=== PATIENT | female | born 2000 | race Caucasian/White ===

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

== ENCOUNTER → 2021-02-22 17:28 | Outpatient (CLI) | payer BC, SELFPAY ==
[2021-02-22 18:04] LABS: Basophils # 0.1 K/mm3 (0-0.2); Basophils % 0.3 % (0.1-2.0); Eosinophils # 0.1 K/mm3 (0.0-0.4); Eosinophils % 0.4 % (0.1-12.0); Hemoglobin 10.2 g/dL (12.2-16.2); Lymphocytes # 2.6 K/mm3 (0.7-4.5); Mean Corpuscular HGB Conc 32.9 g/dL (31.8-35.4); Mean Corpuscular Hemoglobin 26.5 pg (27.0-31.2); Mean Corpuscular Volume 80.5 fl (81-99); Mean Platelet Volume 7.6 fl (7.4-10.4); Monocytes # 0.5 K/mm3 (0.1-1.0); Monocytes % 3.3 % (1.7-9.3); Neutrophils # 11.9 K/mm3 (1.8-7.8); Neutrophils % 78.9 % (37.0-80.0); Platelet Count 315 K/mm3 (142-424); Red Blood Count 3.85 M/mm3 (4.20-5.40); Red Cell Distribution Width 14.2 % (11.5-17.5); White Blood Count 15.1 K/mm3 (4.5-13.0)
[2021-02-22 18:12] LABS: MANUAL DIFFERENTIAL MANUAL DIFFERENTIAL (MANUAL DIFF)
[2021-02-22 19:01] LABS: Eosinophils % 1 % (0-3); Lymphocytes % 14 % (10-50); Monocytes % 3 % (2-9); Neutrophils % 82 % (42-76); Total Cells Counted 100
[2021-02-22 19:02] LABS: Microcytosis 1+; Platelet Estimate Normal; Spherocytes 1+
[2021-02-24 09:23] LABS: HIV Screen 4th Generation wRfx Non Reactive (Non Reactive)
[2021-02-25 12:49] LABS: Hepatitis B Surface Antigen Negative (Negative); Hepatitis C Antibody <0.1 s/co ratio (0.0-0.9); Rapid Plasma Reagin Ab Titer Non Reactive (NonRea<1:1); Rubella Antibodies, IgG 1.44 index (Immune >0.99)
[2021-02-26 00:50] LABS: Neisseria gonorrhoeae, NAA Negative (Negative)
== END ==
PROVIDERS: Visit Provider Nurse Practitioner Obstetrics & Gynecology
DX: Z34.90 Encounter for supervision of normal pregnancy, unspecified, unspecified trimester (principal)
CPT/HCPCS: 36415; 85007; 85025; 86592; 86695; 86696; 86703; 86762; 86850; 87340; 87380; 87491; 87591; G0432

== ENCOUNTER → 2021-02-24 15:10 | Outpatient (CLI) | payer BC, SELFPAY ==
--- NOTE | 2021-02-24 15:11 | US_ITS ---
PROCEDURE: US OB /MATERNAL DETAIL CLINICAL INDICATION: First NEW OB visit -came in at 20wks Late to care No prior ultrasound Patient does not know LMP and says they area irregular Cephalic Placenta anterior Cervix and amniotic fluid normal Anatomy limited due to gestational age Anatomy seen normal movement seen COMPARISON: No exams were available for comparison FINDINGS: There is a single live fetus present which is in cephalic presentation. The cervix is closed and measures 4 cm in length. The placenta is anterior and grade 1. Complete survey performed and was unremarkable on the submitted images as in PACS. No discrete anomalies identified on survey imaging by technologist. Active fetus. Three-vessel cord with satisfactory umbilical cord insertion. 4- chamber heart noted. Survey of brain & ventricles Unremarkable. Face and neck survey unremarkable. Diaphragm and chest views unremarkable. Abdomen: Both kidneys noted and unremarkable. Stomach noted and satisfactory. Spine: Survey of the spine satisfactory with no anomalies identified nor imaged. Both arms and legs noted. Amniotic Fluid: Adequate. Maternal adnexa: No significant findings. Measurements: Average ultrasound age 25weeks. Gestational Age 25weeks 2days Estimated due date by ultrasound age 0806/09/2021. Estimated weight 767g BPD = 25weeks 2days OFD = 25weeks HC = 24weeks 3days AC = 25weeks 2days FL = 25weeks Growth Percentile= not calculated due to unknown last menstrual Heart Rate = 153bpm Cerebellum = 26weeks 6days Humerus = 25weeks 3days HC/AC is 1.08 CI is 0.78 FL/BPD is 0.73 FL/AC is 0.22 IMPRESSION: Live IUP in cephalic position the at 25 weeks. No obvious anomalies. Please see above for detail Dictated by: Denny Suarez MD 02/25/2021 08:59 Denny Suarez MD in [facility] 02/25/2021 08:59
== END ==
PROVIDERS: PCP Nurse Practitioner Obstetrics & Gynecology; Visit Provider Nurse Practitioner Obstetrics & Gynecology
DX: O26.842 Uterine size-date discrepancy, second trimester (principal); O99.322 Drug use complicating pregnancy, second trimester; Z36.0 Encounter for antenatal screening for chromosomal anomalies; Z3A.20 20 weeks gestation of pregnancy
CPT/HCPCS: 76811

== ENCOUNTER → 2021-05-25 17:40 | Outpatient (CLI) | payer BC, SELFPAY | PROVIDERS: Visit Provider Nurse Practitioner Obstetrics & Gynecology | DX: Z34.90 Encounter for supervision of normal pregnancy, unspecified, unspecified trimester (principal) | CPT/HCPCS: 86403 ==

== ENCOUNTER → 2021-05-28 13:10 | Outpatient (CLI) | payer BC, OTHER, SELFPAY ==
--- NOTE | 2021-05-28 13:11 | US_ITS ---
PROCEDURE: US OB FOLLOW UP CLINICAL INDICATION: sga Small for gestational age FINDINGS: The following parameters are obtained: Average ultrasound age is Average 37weeks 4days Estimated due date by ultrasound is 06/14/2021. Estimated weight is 3,139g. This is 36 percentile BPD: 38weeks 1day OFD: 38 weeks 2 days HC: 37weeks AC: 36weeks 5days FL: 38weeks 1day heart rate: 155bpm bpm. HC/AC: 1 Cephalic index: 0.83 FL/BPD: 0.79 FL/AC: 0.23 Amniotic fluid index: 12.57cm The femur length is 38weeks 1day fetus is in cephalic presentation. placental lakes are noted. There is calcification of the placenta at the uterine wall. Grade 3 anterior/fundal placenta Biophysical profile is 8 of 8. SD ratio is 2.1 with a resistive index of 0.52 within normal limits. IMPRESSION: There is a single live fetus present in cephalic presentation. Average ultrasound age 37 weeks 4 days with an estimated weight 3139 g which is 36 percentile. The femur length is 38 weeks 1 day. MONCHO normal at 13 cm, SD ratio unremarkable at 2.1, biophysical profile 8 of 8 Anterior grade 3 placenta Dictated by: Denny Suarez MD 05/28/2021 14:56 Denny Suarez MD in [facility] 05/28/2021 14:56
== END ==
PROVIDERS: PCP Nurse Practitioner Obstetrics & Gynecology; Visit Provider Nurse Practitioner Obstetrics & Gynecology
DX: O36.5990 Maternal care for other known or suspected poor fetal growth, unspecified trimester, not applicable or unspecified (principal)
CPT/HCPCS: 76816; 76819

== ENCOUNTER → 2021-06-01 13:13 | Outpatient (CLI) | payer BC, OTHER, SELFPAY | PROVIDERS: Visit Provider Nurse Practitioner Obstetrics & Gynecology | DX: Z01.812 Encounter for preprocedural laboratory examination (principal); Z11.52 Encounter for screening for COVID-19; Z34.90 Encounter for supervision of normal pregnancy, unspecified, unspecified trimester | CPT/HCPCS: U0003 ==

== ENCOUNTER 2021-06-02 05:16 | Inpatient (IN) | payer BC, OTHER, SELFPAY ==
[2021-06-02 05:28] VITALS: BMI 24.3
[2021-06-02 05:45] VITALS: BP 132/67; PULSE 85; RESP 18; TEMP 36.8; BMI 24.3
[2021-06-02 06:02] LABS: Basophils # 0.1 K/mm3 (0-0.2); Basophils % 0.5 % (0.1-2.0); Eosinophils # 0.1 K/mm3 (0.0-0.4); Hematocrit 27.1 % (37.0-47.0); Hemoglobin 8.8 g/dL (12.2-16.2); Lymphocytes # 3.3 K/mm3 (0.7-4.5); Lymphocytes % 27.7 % (10-50); Mean Corpuscular HGB Conc 32.4 g/dL (31.8-35.4); Mean Corpuscular Hemoglobin 22.8 pg (27.0-31.2); Mean Corpuscular Volume 70.4 fl (81-99); Mean Platelet Volume 9.9 fl (7.4-10.4); Monocytes # 0.4 K/mm3 (0.1-1.0); Monocytes % 3.3 % (1.7-9.3); Neutrophils % 67.5 % (37.0-80.0); Platelet Count 300 K/mm3 (142-424); Red Blood Count 3.85 M/mm3 (4.20-5.40); Red Cell Distribution Width 14.2 % (11.5-17.5); White Blood Count 11.8 K/mm3 (4.5-13.0)
[2021-06-02 07:23] LABS: Microscopic, Urine URINE MICROSCOPIC (MICROSCOPIC)
[2021-06-02 07:27] LABS: Appearance,Urine CLEAR (Clear); Bilirubin,Urine Negative (Negative); Blood, Urine Negative (Negative); Color,Urine YELLOW (Yellow); Glucose,Urine (UA) Negative (Negative); Ketones,Urine Negative (Negative); Leukocyte Esterase,Urine Negative (Negative); Nitrate,Urine Negative (Negative); Protein,Urine Negative (Negative); Specific Gravity, Urine >= 1.030 (1.005-1.030); Urobilinogen,Urine 0.2 EU/dl (0.2)
[2021-06-02 07:40] LABS: Benzodiazepines Screen,Urine Negative ng/ml (<200)
[2021-06-02 07:41] LABS: Amphetamine/Metha Screen,Urine Negative ng/ml (<1000)
[2021-06-02 07:42] LABS: Barbiturates Screen,Urine Negative ng/ml (<200); Methadone Screen,Urine Negative ng/ml (<300)
[2021-06-02 07:43] LABS: Cannabinoid Screen,Urine Negative ng/ml (<50); Cocaine Screen,Urine Negative ng/ml (<300)
[2021-06-02 07:44] LABS: Opiate Screen,Urine Negative ng/ml (<300)
[2021-06-02 07:45] LABS: Phencyclidine Screen,Urine Negative ng/ml (<25)
--- NOTE | 2021-06-02 09:20 | HMH.PHAINT ---
MEDICATION RECONCILIATION COMPLETE USING ANI REPORT, EXTERNAL PHARMACY FILL HISTORY, AND MD OFFICE VISIT LIST.
--- NOTE | 2021-06-02 10:08 | HMH.OBAPHP ---
OB - H&P: HPI Antepartum - History of Present Illness Chief complaint: Term , previous vaginal delivery, Subutex use in History of present illness: She is a 20-year-old 2 para 1 who is 39 weeks gestational age. She has been followed throughout her . In the early part of her she was using fentanyl tablets. She subsequently has been started on Subutex and has been doing very well with this. She takes 16 mg daily. She is now term and we are going to induce her labor at term. She is 4 cm dilated. [facility] History I have reviewed the patient's past medical history: Yes Medical History: Denies:: Cancer, Diabetes Mellitus Type 1, Diabetes Mellitus Type 2, MRSA *Have you ever received a pneumonia vaccine?: No *Have you received a flu vaccine this season?: No Other Surgeries: Yes: No Previous Surgery. No: Amputation: No Fractures: No - *Social History Smoking Status: Never smoker Alcohol Intake: never Substance Use Type: heroin, methamphetamine, prescription drug, amphetamines, opiates *Occupational Status:: unemployed *Travel in the last 8 weeks: None Family Hx:: No significant family history Para: 1 Review of Systems - Review of Systems Review of systems:: pertinent systems reviewed and negative unless documented below Meds Home Medications Medication Instructions Recorded Confirmed Type buprenorphine HCl 8 mg sublingual 2 tab SUBLINGUAL DAILY 03/24/21 06/02/21 History tablet Allergies Allergy/AdvReac Type Severity Reaction Status Date / Time No Known Allergies Allergy Verified 06/01/21 14:12 OB - H&P: Exam - Physical Exam Vital signs: Temp Pulse Resp BP 98.3 F 85 18 132/67 06/02/21 05:45 06/02/21 05:45 06/02/21 05:45 06/02/21 05:45 - Constitutional no acute distress - Routine HEENT Exam Head: Present: normocephalic Eye: Present: EOMI, PERRL ENT: Present: mucous membranes moist - Routine Neck Exam Present: supple, full ROM - Routine Respiratory Exam Absent: accessory muscle use (good air entry bilaterally), respiratory distress, wheezes, crackles - Routine Cardiovascular Exam Present: RRR. Absent: murmur - Routine Abdominal Exam Present: soft, normoactive bowel sounds. Absent: tenderness, distended, guarding - Routine Rectal Exam Patient deferred: visual exam, digital exam - Routine Exam Patient deferred: external exam, groin exam, perineal exam - Routine Extremities Exam Present: full ROM. Absent: cyanosis, edema - Routine Skin Exam Present: intact. Absent: cyanosis - Routine Neurological Exam Present: alert, oriented X3 - Routine Psychiatric Exam Present: normal affect OB - Results - Labs Labs: Short CBC 06/02/21 Range/Units 05:45 WBC 11.8 (4.5-13.0) K/mm3 Hgb 8.8 L (12.2-16.2) g/dL Hct 27.1 L (37.0-47.0) % Plt Count 300 (142-424) K/mm3 Urine 06/02/21 Range/Units 07:00 Urine Color Yellow (Yellow) Urine Appearance Clear (Clear) Urine pH 6.0 (5.0-8.5) Ur Specific [place] >= 1.030 (1.005-1.030) Urine Protein Negative (Negative) Urine Glucose (UA) Negative (Negative) OB - A/P Antepartum (1) Normal delivery at term Status: Acute (2) complicated by subutex maintenance, antepartum Status: Acute (3) First in adolescent 16 years of age or older Status: Acute - Additional Plan Planning to breastfeed?: No Plan: induction Additional Information:: She is 39 weeks gestational age and we have elected to induce her labor. We ruptured her membranes and inserted an IUPC. There was clear fluid. She is 4 cm 75% and station -1. She has an epidural.
--- NOTE | 2021-06-02 10:11 | HMH.LABNOT ---
Labor Note - Subjective: Date: 06/02/21 Time: 10:11 regular contraction - Objective: NST:: Reactive Contractions:: every 2-3 minutes Cervical Dilation:: 4 Effacement:: 75% Station: -1 Membranes: artificially ruptured - Fetus: Monitoring?: Yes monitoring type:: Internal and External Comment:: I inserted an I UPC - Assessment: Labor progressing?: Yes Cephalopelvic disproportion?: No Patient Problems: All Active Problems Normal delivery at term (Acute) complicated by subutex maintenance, antepartum (Acute) First in adolescent 16 years of age or older (Acute) (Acute) - Plan: Anesthesia for epidural?: Yes Continue to labor down?: Yes Plan for ?: No Continue to monitor?: Yes Start pushing?: No
--- NOTE | 2021-06-02 11:03 | P.PN_ITS ---
[facility] Anesthesia Checklist - Patient Identification Patient Identification: Arm Band - Structural Data Admitted From: Inpatient Planned Operative Procedure/s: labor epidural Consent for Planned Operative Procedure(s) Verified: Yes Verified Documents: Surgical Consent, History and Physical - NPO Status Verified Time NPO: 00:00 - Additional verifications Anesthesia Reactions: No - Airway Assessment C-Spine Mobility Assessed: Yes TMJ Mobility Assessed: Yes Dentition: Good Dentition - Neurological Assessment Level of Consciousness: Awake, Alert - Anesthesia Plan Anesthesia Risk discussed: Yes Anesthesia Plan: Verified ASA Class: II Anesthesia Type: Epidural [facility] History I have reviewed the patient's past medical history: Yes Medical History: Denies:: Cancer, Diabetes Mellitus Type 1, Diabetes Mellitus Type 2, MRSA *Have you ever received a pneumonia vaccine?: No *Have you received a flu vaccine this season?: No Anesthesia experience/problems:: nac Other Surgeries: Yes: No Previous Surgery. No: Amputation: No Fractures: No - *Social History Smoking Status: Never smoker Alcohol Intake: never Substance Use Type: heroin, methamphetamine, prescription drug, amphetamines, opiates *Occupational Status:: unemployed *Travel in the last 8 weeks: None Family Hx:: No significant family history Para: 1
--- NOTE | 2021-06-02 13:47 | HMH.LABNOT ---
Labor Note - Subjective: Date: 06/02/21 Time: 11:59 regular contraction - Objective: NST:: Reactive Contractions:: every 2-3 minutes Cervical Dilation:: 4 Effacement:: 90% Station: -1 Membranes: artificially ruptured - Fetus: monitoring type:: Internal and External - Assessment: Labor progressing?: No Cephalopelvic disproportion?: No Patient Problems: All Active Problems Normal delivery at term (Acute) complicated by subutex maintenance, antepartum (Acute) First in adolescent 16 years of age or older (Acute) (Acute) - Plan: Anesthesia for epidural?: Yes Continue to labor down?: Yes Plan for ?: No Continue to monitor?: Yes Start pushing?: No
--- NOTE | 2021-06-02 13:48 | HMH.LABNOT ---
Labor Note - Subjective: Date: 06/02/21 Time: 13:48 regular contraction - Objective: NST:: Reactive Contractions:: every 2-3 minutes Cervical Dilation:: 5 Effacement:: 90% Station: -1 Membranes: artificially ruptured - Fetus: Monitoring?: Yes monitoring type:: Internal and External - Assessment: Labor progressing?: Yes Cephalopelvic disproportion?: No Patient Problems: All Active Problems Normal delivery at term (Acute) complicated by subutex maintenance, antepartum (Acute) First in adolescent 16 years of age or older (Acute) (Acute) - Plan: Anesthesia for epidural?: Yes Continue to labor down?: Yes Plan for ?: No Continue to monitor?: Yes Start pushing?: No
--- NOTE | 2021-06-02 16:10 | HMH.LABNOT ---
Labor Note - Subjective: Date: 06/02/21 Time: 15:25 regular contraction - Objective: NST:: Reactive Contractions:: every 2-3 minutes Cervical Dilation:: 6-7 Effacement:: 100% Station: 0 Membranes: artificially ruptured - Fetus: Monitoring?: Yes monitoring type:: Internal and External - Assessment: Labor progressing?: Yes Cephalopelvic disproportion?: No Patient Problems: All Active Problems Normal delivery at term (Acute) complicated by subutex maintenance, antepartum (Acute) First in adolescent 16 years of age or older (Acute) (Acute) - Plan: Anesthesia for epidural?: Yes Continue to labor down?: Yes Plan for ?: No Continue to monitor?: Yes Start pushing?: No
[2021-06-02 16:44] LABS: Cord Blood PH 7.35 (7.35-7.45)
--- NOTE | 2021-06-02 17:24 | HMH.DN ---
- Delivery Note Delivery Date:: 06/02/21 Delivery Time:: 16:20 Anesthesia Type: Epidural Was labor medically induced?: Yes Induction method: per misoprostol protocol Gestational age (weeks): 39 delivered prior to 39 weeks?: No Infant Gender: Female at 1 minute: 8 at 5 minutes: 9 LAC or MLE?: LAC Delivery Procedure:: She is a 20-year-old 2 para 1 at 39 weeks gestational age. We brought her in for induction of labor at term. She was started on IV oxytocin and had her membranes ruptured. Under labor epidural she progressed to full dilation and delivered spontaneously a liveborn female child at 4:20 PM in the afternoon of the June 02, 2021. On deliver the head the anterior shoulder then easily delivered followed by the rest the infant's body atraumatically. The baby was vigorous and the oropharynx and nasopharynx were bulb suctioned. We allowed the cord to continue to pulsate for approximately 1 minute. The cord was then doubly clamped and cut and the was handed to Dr. Strickland who assigned Apgars of 8 at 1 minute and 9 at 5 minutes. We then obtained cord blood as well as cord pH. She received IV oxytocin and using gentle traction on the cord and countertraction on the fundus I was able to easily deliver the placenta intact. It had a normal three-vessel cord. She had bilateral labial lacerations that were repaired with interrupted 3-0 Vicryl Rapide suture. She has O Rh+ blood, she is rubella immune and was group B streptococcus negative. She plans to bottlefeed. Her mandolin repairer is Dr. Strickland. Estimated blood loss was approximately 200 cc. Laceration:: labial Placental Delivery Description: Spontaneous
--- NOTE | 2021-06-03 07:16 | PC.NURSE ---
Report given to Roxi CONTRERAS
--- NOTE | 2021-06-03 08:29 | HMH.ACPN2 ---
Internal Medicine - PN: Subj *Date: 06/03/21 *Time: 08:29 Interval history: She is doing well. She declined her H&H this morning. I have encouraged her to go ahead and get this since she was anemic yesterday. She is bottlefeeding. Her lochia is normal. She feels otherwise well. Exam Vital signs and Labs for Last 24 Hours: Temp Pulse Resp BP 98.3 F 85 18 132/67 06/02/21 05:45 06/02/21 05:45 06/02/21 05:45 06/02/21 05:45 Laboratory Results - last 24 hr 06/02/21 05:45: Blood Type O Positive, Antibody Screen Negative, Crossmatch (AHG) See Detail 06/02/21 16:20: Cord ABG pH 7.35 I & O for Last 24 hours: Intake & Output 05/31/21 06/01/21 06/02/21 06/03/21 11:59 11:59 11:59 11:59 Weight 145 lb 15.983 oz - Constitutional no acute distress - *Routine HEENT Exam Head: Present: normocephalic Eye: Present: EOMI, PERRL ENT: Present: mucous membranes moist Assessment and Plan (1) Normal delivery at term Status: Acute Category: Medical Code(s): O80 - Encounter for full-term uncomplicated delivery (2) complicated by subutex maintenance, antepartum Status: Acute Category: Medical Code(s): O99.320 - Drug use complicating , unspecified trimester; F11.20 - Opioid dependence, uncomplicated (3) First in adolescent 16 years of age or older Status: Acute Category: Medical Code(s): Z34.00 - Encounter for supervision of normal first , unspecified trimester - Assessment and plan all Dx Assessment and Plan for all problems:: She is doing well this morning. We will plan to send her home tomorrow.
[2021-06-03 09:13] LABS: Hematocrit 23.5 % (37.0-47.0); Hemoglobin 7.8 g/dL (12.2-16.2)
--- NOTE | 2021-06-03 12:55 | SW/DCPLANNER ---
Addendum entered by Irina Morley 06/04/21 10:00: AFTER A COUPLE OF CALLS TO [facility], THE CASE ON THIS PATIENT IS STILL PENDING... WILL FOLLOWUP AGAIN LATER IN THE MORNING TO SEE IF THEY HAVE MADE A DECISION... Original Note: RECEIVED REFERRAL FOR THIS PATIENT THAT ADMITTED TO [facility] [address]. PATIENT ALSO TESTED POSITIVE FOR MORPHINE THIS .. PATIENT PRESENTED INTO THE HOSPITAL 39 WEEKS IUP AND DELIVERED A LIVE BORN FEMALE BOTH INFANT AND PATIENTS UDS WAS NEGATIVE.. IS SCORING WITHDRAW DISTURBED TREMORS, EXCESSIVE SNEEZING, SUCKING, CRYING... PATIENT HAS ANOTHER CHILD THAT SHE DOES NOT HAVE IN HER CUSTODY, PATIENTS MOTHER IS AT BEDSIDE AND HAS HER OTHER CHILD.. SHE IS IN A [facility] CLINIC.. SHE STATES SHE TAKES 2 PILLS EACH DAY.. I MADE A REPORT TO [facility] AN ID# [id number] PATIENT STATED SHE DOES NOT HAVE WIC OR FOODSTAMPS BUT IS GOING TO APPLY.. SHE DID SAY SHE HAD EVERYTHING SHE NEEDS TO TAKE THE INFANT HOME, HER MOTHER HAS CONCERNS OF HER TAKING THE BABY HOME BECAUSE WHERE SHE LIVES.. IT WAS REPORTED AND I WILL FOLLOWUP WITH [facility] TO SEE IF THEY ACCEPTED THE CASE FOR INVESTIGATION.. CORD SCREEN WAS COLLECTED AND SENT OFF, IT WILL BE REPORTED.. THE PLAN IS FOR PATIENT TO DISCHARGE IN THE AM AND PENDING HOW DOES IS WHETHER IT WILL BE READY OR NOT..
[2021-06-03 20:02] VITALS: BP 128/70; PULSE 65; RESP 16; TEMP 36.8; O2SAT 100
[2021-06-04 04:08] VITALS: BP 131/78; PULSE 68; RESP 16; TEMP 37.1; O2SAT 97
[2021-06-04 07:15] VITALS: BP 115/61; PULSE 78; RESP 18; TEMP 37.2; O2SAT 98
--- NOTE | 2021-06-04 11:51 | P.DS_ITS ---
General - General Admission date:: 06/02/21 Discharge date: 06/04/21 HPI - History of Present Illness History of present illness: She is a 20-year-old 2 para 1 at 39 weeks gestational age. She is using Subutex for drug abuse. She was brought in for induction of labor at term. Hospital Course Hospital Course: She was started on IV oxytocin and had her membranes ruptured. She progressed to full dilation under labor epidural and delivered spontaneously a liveborn female child in the afternoon of June 02, 2021. Baby weighed 7 pounds 14 ounces and was 19 inches long. She had Apgars of 8 at 1 minute and 9 at 5 minutes. She has done well and has remained afebrile throughout her hospitalization. She is eating and drinking and ambulating. She is bottlefe eding. Her lochia is normal. She has O+ blood, she is rubella immune and was group B streptococcus negative. Her personnel clerk Dr. Strickland. She was noted to have predelivery anemia and post delivery her hemoglobin is 7.8. She is asymptomatic with respect to this. She is discharged home to follow-up with me in approximate 2 weeks time. She will continue with her vitamins. She was given a prescription for iron tablets to take twice daily. She will continue with her Subutex. She was given the usual instructions with respect to limiting her activity, driving and sexual activity. She would like to have Depo-Provera for control and will give this to her before she leaves. Her condition on discharge is stable and improved. Rhogam Administration: Not Indicated Objective Vital signs: Temp Pulse Resp BP Pulse Ox 98.9 F 78 18 115/61 98 06/04/21 07:15 06/04/21 07:15 06/04/21 07:15 06/04/21 07:15 06/04/21 07:15 no acute distress - *Routine Neck Exam Present: supple DS: Diagnosis - Discharge Diagnosis (1) Normal delivery at term Status: Acute (2) complicated by subutex maintenance, antepartum Status: Acute (3) First in adolescent 16 years of age or older Status: Acute (4) Anemia, Status: Acute Discharge Plan - Patient Discharge Instructions ACTIVITY: No heavy lifting DIET: continue same diet - Follow up Plan Condition at discharge:: Stable Home Medications: Home Medications Medication Instructions Recorded Confirmed Type buprenorphine HCl 8 mg sublingual 2 tab SUBLINGUAL DAILY 03/24/21 06/02/21 History tablet Ferrous Sulfate [Ferrous Sulfate 325 mg PO DAILY #30 tab 06/04/21 Rx 325mg Tablet] Prescriptions/Medication Reconciliation: New Ferrous Sulfate [Ferrous Sulfate 325mg Tablet] 325 mg PO DAILY #30 tab Continued buprenorphine HCl 8 mg sublingual tablet 2 tab SUBLINGUAL DAILY - Problem Reconciliation Problems Reviewed?: Yes
[2021-06-04 12:04] VITALS: BP 106/64; PULSE 62; RESP 16; TEMP 36.9; O2SAT 97
[2021-06-08 10:25] LABS: Buprenorphine Positive (.)
== END 2021-06-04 14:45 | disposition home or self-care (01) | DRG 807 ==
PROVIDERS: Obstetrics & Gynecology; Admitting Provider Nurse Practitioner Obstetrics & Gynecology; PCP Nurse Practitioner Obstetrics & Gynecology; Visit Provider Nurse Practitioner Obstetrics & Gynecology
DX: O70.0 First degree perineal laceration during delivery (principal); Z37.0 Single live birth; Z3A.39 39 weeks gestation of pregnancy; O99.320 Drug use complicating pregnancy, unspecified trimester; F11.11 Opioid abuse, in remission; O90.81 Anemia of the puerperium
CPT/HCPCS: 59409; 36415; 59025; 80305; 80348; 81001; 82800; 85014; 85018; 85025; 86850; 94761; C1758; G0283; J0571

== ENCOUNTER → 2021-12-30 09:04 | Outpatient (CLI) | payer BC, OTHER, SELFPAY ==
[2021-12-30 10:09] LABS: Basophils # 0.2 K/mm3 (0-0.2); Basophils % 2.7 % (0.1-2.0); Eosinophils # 0.3 K/mm3 (0.0-0.4); Eosinophils % 5.5 % (0.1-12.0); Hematocrit 38.3 % (37.0-47.0); Hemoglobin 12.1 g/dL (12.2-16.2); Lymphocytes % 53.3 % (10-50); Mean Corpuscular HGB Conc 31.5 g/dL (31.8-35.4); Mean Corpuscular Hemoglobin 24.8 pg (27.0-31.2); Mean Corpuscular Volume 78.8 fl (81-99); Mean Platelet Volume 7.6 fl (7.4-10.4); Monocytes # 0.2 K/mm3 (0.1-1.0); Monocytes % 3.6 % (1.7-9.3); Neutrophils % 34.9 % (37.0-80.0); Platelet Count 337 K/mm3 (142-424); Red Blood Count 4.86 M/mm3 (4.20-5.40); Red Cell Distribution Width 15.4 % (11.5-17.5); White Blood Count 5.6 K/mm3 (4.5-13.0)
[2021-12-30 10:18] LABS: MANUAL DIFFERENTIAL MANUAL DIFFERENTIAL (MANUAL DIFF)
[2021-12-30 10:37] LABS: Alanine Aminotransferase 23 U/L (12-78); Albumin Level 4.5 g/dl (3.5-5.0); Alkaline Phosphatase 89 U/L (38-126); Aspartate Amino Transferase 35 U/L (14-36); Bilirubin,Direct 0.1 mg/dl (0.0-0.4); Bilirubin,Indirect 0.3 mg/dL (0.0-0.9); Bilirubin,Total 0.4 mg/dl (0.2-1.3); Bilirubin,Unconjugated 0.2 mg/dL (0.0-1.1); Blood Urea Nitrogen 12 mg/dl (7-17); Calcium 9.3 mg/dl (8.4-10.2); Carbon Dioxide 25 mmol/L (22.0-30.0); Chloride 104 mmol/L (98-107); Estimated Glomerular Filt Rate 127 ml/min (>60); GFR (African American) 154 ML/MIN (>60); Glucose 96 mg/dl (74-100); Sodium 138 mmol/L (136-145); Total Protein,Serum 6.7 g/dl (6.3-8.2)
[2021-12-30 12:29] LABS: Eosinophils % 6 % (0-3); Lymphocytes % 51 % (10-50); Monocytes % 5 % (2-9); Neutrophils % 36 % (42-76); Total Cells Counted 100
[2021-12-30 12:32] LABS: Platelet Estimate Normal; RBC Morphology Normal
[2021-12-31 09:23] LABS: HIV Screen 4th Generation wRfx Non Reactive (Non Reactive)
[2021-12-31 10:13] LABS: Hep A Ab, Total Positive (Negative); Hep B Core Ab, Total Negative (Negative); Hepatitis B Surf Ab Quant <3.1 mIU/mL (Immunity>9.9); Hepatitis B Surface Antigen Negative (Negative); Rapid Plasma Reagin Ab Titer Non Reactive (NonRea<1:1)
[2022-01-02 20:13] LABS: QuantiFERON-TB Gold Plus Negative (Negative)
== END ==
PROVIDERS: Visit Provider Nurse Practitioner Family
DX: F11.21 Opioid dependence, in remission (principal)
CPT/HCPCS: 36415; 80048; 80076; 85007; 85025; 86480; 86592; 86703; 86704; 86706; 86708; 87340; G0432

== ENCOUNTER 2022-01-05 00:52 | Emergency (ER) | payer BC, OTHER, SELFPAY ==
[2022-01-05 01:03] VITALS: BP 0/0; PULSE 0; RESP 0; TEMP -17.7; TEMP 0; O2SAT 0
[2022-01-05 01:03] LABS: Microscopic, Urine URINE MICROSCOPIC (MICROSCOPIC)
[2022-01-05 01:05] LABS: Appearance,Urine CLEAR (Clear); Bilirubin,Urine Negative (Negative); Blood, Urine Negative (Negative); Color,Urine YELLOW (Yellow); Glucose,Urine (UA) Negative (Negative); Ketones,Urine Negative (Negative); Leukocyte Esterase,Urine 1+ (Negative); Nitrate,Urine Negative (Negative); Protein,Urine Negative (Negative); Specific Gravity, Urine >= 1.030 (1.005-1.030); Urobilinogen,Urine 0.2 EU/dl (0.2)
[2022-01-05 01:06] LABS: Urine Pregnancy, HCG Qual. Negative (Negative)
[2022-01-05 01:24] LABS: Bacteria,Urine 1+ /lpf; Mucus,Urine 1+ /lpf
--- NOTE | 2022-01-05 01:36 | HMH.ITSTN ---
pt left ER prior to attempting ct scan
== END 2022-01-05 01:08 | disposition left against medical advice (07) ==
PROVIDERS: Emergency Provider Emergency Medicine
DX: Z53.21 Procedure and treatment not carried out due to patient leaving prior to being seen by health care provider (principal); R10.10 Upper abdominal pain, unspecified
CPT/HCPCS: 81001; 81025; 87086; 99211

== ENCOUNTER 2022-11-22 18:27 | Day surgery (SDC) | payer BC, OTHER, SELFPAY ==
[2022-11-22] VITALS (13 sets, daily range): BP systolic 99–137; BP diastolic 53–83; PULSE 89–130; RESP 16–22; TEMP 36.9–37.2; O2SAT 96–100; BMI 21.6
--- NOTE | 2022-11-22 18:50 | PC.NURSE ---
fetus brought to ED wrapping in paper towels and placed in a bag (there were in a store when pt passed fetus). Fetus carefully removed from bag used saline to remove paper towels that were wrapped around fetus. ER MD present, he measured crown to rump length- approx 70 cm saline placed on fetus to keep moist, fetus placed in container with a lid until we can speak with OB it architecture consultant or lab if needed per the direction of ER . container wrapped in baby blanket and placed in a bath basin. [place] in room with pt, explained to pt we had moistened fetus with saline and have placed it in a container until ER has spoken with OB it architecture consultant. Asked pt is she would like to have fetus in the bed with her, pt declined. Pt mother at BS. will continue to monitor.
--- NOTE | 2022-11-22 19:03 | PC.NURSE ---
ob nursing staff at BS
--- NOTE | 2022-11-22 19:19 | PC.NURSE ---
on phone with dr ashley
--- NOTE | 2022-11-22 19:22 | US_ITS ---
PROCEDURE INFORMATION: Exam: US Pelvis Complete, Transabdominal and US Duplex Artery and Vein, Ovaries, Complete Exam date and time: 11/22/2022 7:52 PM Age: 22 years old Clinical indication: Pelvic pain: [place] post miscarriage spont; Pelvic pain; Patient HX: PT unaware of -- has been bleeding passing clots-- PT had sponataeous ab of formed fetus approx 12 wks? ? Tonight-- eval for retained products TECHNIQUE: Imaging protocol: Real-time transabdominal pelvic ultrasound with image documentation. Real-time duplex ultrasound scan of the arterial and venous flow of the ovaries with B-mode, color Doppler flow and spectral waveform analysis. Complete Pelvis, Complete Duplex. Duplex exam was performed to evaluate for torsion and other vascular conditions. COMPARISON: No relevant prior studies available. FINDINGS: Uterus: Enlarged uterus measures approximately 11.8 x 12.5 x 8.5 cm. Endometrial stripe thickness: Poorly delineated heterogeneously thickened peripherally hyperemic endometrium measuring approximately 8.2 x 7.9 x 5.8 cm containing debris, blood/fluid extending into the endocervical canal. Right ovary/adnexa: Measures approximately 8.3 mL. Left ovary/adnexa: Measures approximately 3.4 mL. Intraperitoneal space: No discernible adnexal mass or abnormality. No free fluid within the pelvis. Urinary bladder: Partially distended urinary bladder. Other findings: Doppler examination of the ovaries with pulsed wave and color images was performed which demonstrate arterial/venous waveforms within normal limits. IMPRESSION: 1. Findings consistent with retained products of conception. 2. Normal ovaries demonstrating blood flow on Doppler.
--- NOTE | 2022-11-22 19:22 | PC.NURSE ---
assisted ER MD with pelvic exam at this time.
--- NOTE | 2022-11-22 19:23 | PC.NURSE ---
rad staff notified of transvaginal ultrasound order
[2022-11-22 19:29] LABS: Basophils % 0.2 % (0.1-2.0); Eosinophils # 0.1 K/mm3 (0.0-0.4); Eosinophils % 0.3 % (0.1-12.0); Hematocrit 33.9 % (37.0-47.0); Hemoglobin 11.1 g/dL (12.2-16.2); Lymphocytes # 1.9 K/mm3 (0.7-4.5); Lymphocytes % 9.8 % (10-50); Mean Corpuscular HGB Conc 32.6 g/dL (31.8-35.4); Mean Corpuscular Hemoglobin 22.7 pg (27.0-31.2); Mean Corpuscular Volume 69.4 fl (81-99); Mean Platelet Volume 7.3 fl (7.4-10.4); Monocytes # 0.6 K/mm3 (0.1-1.0); Monocytes % 3.2 % (1.7-9.3); Neutrophils # 16.4 K/mm3 (1.8-7.8); Neutrophils % 86.4 % (37.0-80.0); Platelet Count 503 K/mm3 (142-424); Red Blood Count 4.88 M/mm3 (4.20-5.40); Red Cell Distribution Width 15.8 % (11.5-17.5)
[2022-11-22 19:30] LABS: Chloride 103 mmol/L (98-107); Potassium 3.6 mmoL/L (3.5-5.1); Sodium 138 mmol/L (136-145)
[2022-11-22 19:31] LABS: MANUAL DIFFERENTIAL MANUAL DIFFERENTIAL (MANUAL DIFF)
[2022-11-22 19:33] LABS: Anion Gap 13.6 mEq/L (5-15); Blood Urea Nitrogen 6 mg/dl (7-17); Calcium 9.3 mg/dl (8.4-10.2); Carbon Dioxide 25 mmol/L (22.0-30.0); Estimated Glomerular Filt Rate 201 ml/min (>60); GFR (African American) 244 ML/MIN (>60); Glucose 97 mg/dl (74-100)
--- NOTE | 2022-11-22 19:33 | PC.NURSE ---
Dr. Saavedra paged again
--- NOTE | 2022-11-22 19:33 | PC.NURSE ---
Dr. Garcia speaking with Dr. Saavedra
[2022-11-22 19:34] LABS: Creatinine Clearance Estimated 207 mL/min (50-200)
--- NOTE | 2022-11-22 19:34 | PC.NURSE ---
BUSTER VANESSA speaking with dr. ashley again r/t on what procedure is for fetus as far as does any testing need to be done.
--- NOTE | 2022-11-22 19:39 | HMH.EDGENADL ---
Discharge Plan Disposition Patient Disposition: Admitted As Inpatient Condition: Fair Prescriptions Prescriptions: No Action buprenorphine HCl 8 mg tablet, sublingual 2 tab SUBLINGUAL DAILY Narcan 4 mg/actuation spray,non-aerosol INTRANASAL Label Comments: INHALE 1 SPRAY IN THE NOSE NEEDED MAY REPEAT EVERY 2 3 MINUTES ALTERNATING NOSTRILS UNTIL EMS ARRIVES metoclopramide HCl [Reglan] 5 mg tablet 5 mg PO QID 10 Days Qty: 40 0RF Rx Instructions: administer 30 minutes before meals medroxyprogesterone [Depo-Provera] 150 mg/mL suspension 150 mg IM [id number] Qty: 1 3RF ferrous sulfate 325 MG tablet 325 mg PO DAILY Qty: 30 1RF Referrals Follow up/Referrals: Provider,Referral, [Primary Care Provider] - See instructions Clinical Impressions Clinical Impression: Miscarriage Instructions Patient Instructions: DI for Miscarriage Discharge ED Provider: Temo Garcia General Adult HPI <Temo Garcia MD - Last Filed: 11/22/22 20:01> General Chief complaint: Vaginal Bleeding Stated complaint: poss miscarriage Time Seen by Provider: 11/22/22 18:40 Mode of Arrival: Wheelchair Source of Information: Patient Limitations: No Limitations Description of Symptoms (Recalled from ER Triage Doc. 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 Pt reports has been having vaginal bleeding x3 months, reports irregular LMP since previous that was 16 months ago. Pt reports has been cramping intermittently with vaginal bleeding x3 months. Pt reports has been passing blood clots x2 days. Reports felt like she had to go to the restroom while in a store. Mother was with pt, pt passed a fetus from vaginal while in the bathroom in the store, passed some clots with the fetus. Fetus brought to ER with pt. Pt have slight vaginal bleeding upon arrival to ED, states only has pain when standing up straight. History of Present Illness HPI narrative: Patient presents complaining of a miscarriage. She did not realize she was , but passed a fetus today. She reports that she has been having irregular bleeding since delivery of her child 16 months ago and therefore did not have any identifiable missed menses. She has been having some intermittent vaginal bleeding and cramping for 3 months, passing clots for the past couple of days, and then today had an episode of severe cramping and passed a small fetus which was brought to the emergency department wrapped in paper towels and a plastic bag. She has some persistent bleeding. Currently denies any pain. She is now 3, para 2, AB 1. Dr. Saavedra delivered one of her previous children, and the other was delivered by an mechanical inspector in [place]. She states that she is Rh+. Related Data Home Medications Medication Instructions Recorded Confirmed buprenorphine HCl 8 mg sublingual 2 tab sublingual DAILY hx of drug 03/24/21 06/16/21 tablet use naloxone 4 mg/actuation nasal ea intranasal 06/16/21 06/16/21 spray (Narcan) Previous Rx's Medication Instructions Recorded ferrous sulfate 325 mg (65 mg 325 mg PO DAILY #30 tabs 06/04/21 iron) tablet medroxyprogesterone 150 mg/mL 150 mg IM [id number] #1 mL 06/16/21 intramuscular suspension (Depo-Provera) metoclopramide HCl 5 mg tablet 5 mg PO QID 10 days #40 tabs 06/16/21 (Reglan) Allergies Allergy/AdvReac Type Severity Reaction Status Date / Time No Known Allergies Allergy Verified 06/16/21 15:01 [facility] <Temo Garcia MD - Last Filed: 11/22/22 20:01> [facility] Disclaimer: The information contained in this section may have been updated after the patient was seen, as this information can be updated by other users. Social History Smoking Status: Unknown if ever smoked alcohol intake: never substance use type: heroin, amphetamines, opiates, methamphetamine and prescription drug current occupational status: unemployed Travel in the
--- NOTE | 2022-11-22 19:42 | PC.NURSE ---
shift change report given to rickey meyer and maria teresarn
--- NOTE | 2022-11-22 19:45 | PC.NURSE ---
Pt gone for transvaginal U/S
--- NOTE | 2022-11-22 20:25 | PC.NURSE ---
Spoke with Dr. Suggs, requested surgery team, for D & C.
--- NOTE | 2022-11-22 20:27 | PC.NURSE ---
Spoke with surgery team.
[2022-11-22 20:36] LABS: Coronavirus 19, PCR Not Detected (NotDetected); Influenza A, PCR Not Detected (NotDetected); Influenza B, PCR Not Detected (NotDetected)
--- NOTE | 2022-11-22 20:50 | PC.NURSE ---
dr ashley @ bedside
--- NOTE | 2022-11-22 20:52 | PC.NURSE ---
Dr. Saavedra at BS
--- NOTE | 2022-11-22 20:56 | EXP.HP ---
History of Present Illness *Admission Date: 11/22/22 *Reason for visit:: Incomplete *History of present illness: She is a 22-year-old 3 para 2 who was about 12 weeks gestational age. She did not know she was . She passed a fetus while at [facility]. She had been having bleeding for the last few weeks. Ultrasound shows that she still has some retained products of conception. Possibly placental tissue. [facility] Disclaimer: The information contained in this section may have been updated after the patient was seen, as this information can be updated by other users. Social History Smoking Status: Unknown if ever smoked alcohol intake: never substance use type: heroin, amphetamines, opiates, methamphetamine and prescription drug current occupational status: unemployed Travel in the last 8 weeks: None Review of Systems Review of Systems Review of systems:: pertinent systems reviewed and negative unless documented below Meds Home Medications and Allergies Home Medications Medication Instructions Recorded Confirmed Type buprenorphine HCl 8 mg sublingual 2 tab sublingual DAILY hx of drug 03/24/21 06/16/21 History tablet use ferrous sulfate 325 mg (65 mg 325 mg PO DAILY #30 tabs 06/04/21 06/16/21 Rx iron) tablet medroxyprogesterone 150 mg/mL 150 mg IM [id number] #1 mL 06/16/21 06/16/21 Rx intramuscular suspension (Depo-Provera) metoclopramide HCl 5 mg tablet 5 mg PO QID 10 days #40 tabs 06/16/21 06/16/21 Rx (Reglan) naloxone 4 mg/actuation nasal ea intranasal 06/16/21 06/16/21 History spray (Narcan) New Prescriptions to Start Prescriptions: Allergies Allergy/AdvReac Type Severity Reaction Status Date / Time No Known Allergies Allergy Verified 06/16/21 15:01 Exam Data for Last 24 hours Vital signs and Labs for Last 24 Hours: Temp Pulse Resp BP Pulse Ox 98.4 F 114 H 18 114/63 99 11/22/22 18:28 11/22/22 19:30 11/22/22 19:30 11/22/22 19:30 11/22/22 19:30 Laboratory Results - last 24 hr 11/22/22 18:41: WBC 19.0 H, RBC 4.88, Hgb 11.1 L, Hct 33.9 L, MCV 69.4 L, MCH 22.7 L, MCHC 32.6, RDW 15.8, Plt Count 503 H, MPV 7.3 L, Neut % (Auto) 86.4 H, Lymph % (Auto) 9.8 L, [place] % (Auto) 3.2, Eos % (Auto) 0.3, Baso % (Auto) 0.2, Neut # (Auto) 16.4 H, Lymph # (Auto) 1.9, [place] # (Auto) 0.6, Eos # (Auto) 0.1, Baso # (Auto) 0.0 11/22/22 18:41: Sodium 138, Potassium 3.6, Chloride 103, Carbon Dioxide 25, Anion Gap 13.6, BUN 6 L, Creatinine 0.40 L, Estimated Creat Clear 207, Estimated GFR 201, Est GFR ( Amer) 244, Glucose 97, Calcium 9.3 I & O for Last 24 hours: Intake & Output 11/20/22 11/21/22 11/22/22 11/23/22 11:59 11:59 11:59 11:59 Weight 130 lb Constitutional Constitutional: no acute distress *Routine HEENT Exam Head: Present normocephalic Eye: Present EOMI and PERRL ENT: Present mucous membranes moist *Routine Neck Exam Neck: Present supple; Absent lymphadenopathy *Routine Respiratory Exam Respiratory: Present CTA bilaterally *Routine Cardiovascular Exam Cardiovascular: Present RRR *Routine Abdominal Exam Abdominal: Present soft and normoactive bowel sounds; Absent tenderness *Routine Rectal Exam Rectal:: deferred *Routine Genitalia Exam Genitalia:: deferred *Routine Extremities Exam Extremities: Absent cyanosis, clubbing or edema *Routine Skin Exam Skin: Present warm; Absent rash *Routine Neurological Exam Neurological: Present alert and oriented X3 Assessment and Plan *Assessment and plan (1) Miscarriage: Status: Acute Category: Medical Code(s): O03.9 - Complete or unspecified spontaneous without complication (2) Incomplete : Status: Acute Category: Medical Code(s): O03.4 - Incomplete spontaneous without complication Plan We will go ahead with a dilation and curettage with Rambo suction. Ultrasound
--- NOTE | 2022-11-22 21:43 | P.OP_ITS ---
Date of procedure: 11/22/22 Pre-op Diagnosis:: Miscarriage with retained products Post-op Diagnosis:: Miscarriage with retained placenta Procedure performed:: Dilation and curettage with Rambo suction Surgeon:: Kristian Saavedra MD SALES ASSISTANT [employer]:: Bassam Kan Anesthesia: LMA Estimated blood loss (mL): 350 Clinical Note:: She is a 22-year-old 3 para 2 who was about 12 weeks gestational age. She did not know she was and has been having bleeding for the last c ouple of months. She says that she passed a fetus today while at [facility]. Operative findings:: She had an anteverted bulky uterus. There was copious retained placental tissue within the uterine cavity. Operative note:: She was taken the operating room where LMA anesthesia was found be adequate. She was prepped and draped in the normal sterile fashion in the lithotomy position. Weighted speculum is placed in vagina and the anterior lip of the cervix was grasped with a tenaculum. The cervix was appropriately dilated and I inserted a 10 mm curved [place] suction curette and evacuated the uterine contents. This was followed by gentle curettage. She tolerated the procedure well and was taken to the recovery room in excellent condition. All sponge, instruments counts were correct. The estimated blood loss was approximately 350 cc. Condition: stable Disposition: PACU Specimens:: Retained products of conception Complications:: None
--- NOTE | 2022-11-22 21:47 | EXP.ANES.CKL ---
[facility] Disclaimer: The information contained in this section may have been updated after the patient was seen, as this information can be updated by other users. Social History Smoking Status: Unknown if ever smoked alcohol intake: never substance use type: heroin, amphetamines, opiates, methamphetamine and prescription drug current occupational status: unemployed Travel in the last 8 weeks: None [facility] Anesthesia Checklist Patient Identification Patient Identification: Arm Band Structural Data Admitted From: Emergency Dept Planned Operative Procedure/s: D&C with [place] Suction Consent for Planned Operative Procedure(s) Verified: Yes Verified Documents: Surgical Consent and History and Physical NPO Status Verified Time NPO: 15:00 (clear liquids, no solid food for >24 hours) Additional verifications Anesthesia Reactions: No Airway Assessment C-Spine Mobility Assessed: Yes TMJ Mobility Assessed: Yes Dentition: Good Dentition Neurological Assessment Level of Consciousness: Awake and Alert Anesthesia Plan Anesthesia Risk discussed: Yes Anesthesia Plan: Verified ASA Class: II (E) Anesthesia Type: General
--- NOTE | 2022-11-22 21:48 | P.PNANES_ITS ---
[facility] Anesthesia Record Part I Anesthesia Record I Intake, IV Amount: 700 Estimated blood loss (mL): 350 Urine output (mL): 0 Blood Products used (#): none Blood Pressure: 108/53 SaO2: 97 Pulse Rate: 93 Respiratory Rate: 16 Temperature: 99 F Patient is:: Drowsy and Stable Stable to PACU at:: 21:40
[2022-11-22 21:56] LABS: Lymphocytes % 10 % (10-50); Monocytes % 5 % (2-9); Neutrophils % 85 % (42-76); Total Cells Counted 100
[2022-11-22 21:57] LABS: Hypochromasia 2+; Microcytosis 1+; Platelet Estimate Normal
--- NOTE | 2022-11-23 06:59 | P.PNANES_ITS ---
[facility] Anesthesia Record Part II Anesthesia Record Part II Discharge Time: 22:10 Destination: Surgical Day Care (OP Surgery) PACU nurse assessment reviewed?: Yes Patient Condition:: Good Anesthesia Complications:: None Swallowing reflex intact?: Yes Cyanosis?: No Blood Pressure: 108/63 Pulse Rate: 93 Temperature: 99 F Mental Status: Alert & Oriented Pain level:: 5 Nausea and/or vomitting:: None Intake, IV Amount: 0
[2022-11-23 07:00] VITALS: BP 108/63; PULSE 93; TEMP 37.2
== END 2022-11-22 23:09 | disposition home or self-care (01) ==
LOC: ER 20:28 → SDC 21:16
PROVIDERS: Emergency Provider Emergency Medicine; Visit Provider Nurse Practitioner Obstetrics & Gynecology
PROC: (CPT 59812; principal; 2022-11-22 21:00)
DX: O03.9 Complete or unspecified spontaneous abortion without complication (principal)
CPT/HCPCS: 59812; 76830; 80048; 85007; 85025; 88305; C9803; J2405; U0003; U0005

== ENCOUNTER 2023-07-07 19:13 | Emergency (ER) | payer BC, SELFPAY ==
[2023-07-07 19:14] VITALS: BP 129/73; PULSE 86; RESP 17; TEMP 37.6; O2SAT 99; BMI 24.5
--- NOTE | 2023-07-07 19:34 | EXP.UTC ---
Discharge Plan Disposition Patient Disposition: Home, Self-Care Condition: Good Prescriptions Prescriptions: No Action ferrous sulfate 325 mg (65 mg iron) tablet 325 mg PO DAILY Qty: 30 11RF prenat.vits,phong,bam-ujgr-vqsie Tablet 1 tab PO DAILY Qty: 30 11RF levonorgestrel-ethinyl estrad [Falmina (28)] 0.1-20 mg-mcg tablet 1 tab PO DAILY Qty: 84 3RF Referrals Follow up/Referrals: Provider,Referral, MD [Primary Care Provider] - See instructions Activity Restrictions/Add. Instructions Additional Instructions/Restrictions: Oatmeal bath may help to sooth the skin and the rash Follow up with OBGYN for further evaluation and testing Return if needed Neosporin to areas may help with rash Clinical Impressions Clinical Impression: Rash Instructions Patient Instructions: DI for Rash Discharge ED Provider: Lizette Easton [facility] HPI General Stated complaint: red spots on body Mode of Arrival: Ambulatory Source of Information: Patient Limitations: No Limitations Time Seen by Provider: 07/07/23 19:34 Description of Symptoms (Recalled from Triage Doc. by RN): Patient complaint of red dots on her arms, legs and stomach since this afternoon. HEENT Symptoms (Recalled from RN notes): No Resp Symptoms (Recalled from RN notes): No Skin Symptoms (Recalled from RN notes): Yes MS Symptoms (Recalled from RN notes): No Functional Status (Recalled from RN notes): wnl History of Present Illness Provider Complaint: Patient states that she is not sure if she may have been bitten by something or what at work but she noticed little bumps that look like bites on her legs, abdomen and elbows after getting home from work today States that they are not itching or anything and she was worried she may take something home to her babies so she came in Related Data Previous Rx's Medication Instructions Recorded ferrous sulfate 325 mg (65 mg 325 mg PO DAILY #30 tabs 12/01/22 iron) tablet levonorgestrel-ethinyl estradiol 1 tab PO DAILY #84 tabs 12/01/22 0.1 mg-20 mcg tablet (Falmina (28)) prenat.vits,phong,hdv-bawo-eikhb 1 tab PO DAILY #30 tabs 12/01/22 Allergies Allergy/AdvReac Type Severity Reaction Status Date / Time No Known Allergies Allergy Verified 12/01/22 15:42 Worker's Comp Is this a Worker's Comp case?: No [facility] Disclaimer: The information contained in this section may have been updated after the patient was seen, as this information can be updated by other users. Medical History (Updated 07/07/23 @ 19:57 by Lizette Easton APRN) Retained products of conception Social History (Updated 12/01/22 @ 15:44 by Fern Schilling [facility]) Smoking Status: Current every day smoker alcohol intake: never substance use type: heroin, amphetamines, opiates, methamphetamine and prescription drug current occupational status: unemployed Travel in the last 8 weeks: None ROS Obtained: Yes All systems reviewed & no additional complaints except as documented and Yes Systems reviewed as appropriate & no additional complaints except as documented ENT Ears, Nose, Mouth, and Throat: Reports system reviewed and no additional complaints, except as documented and Reports as per HPI Cardiovascular Cardiovascular: Reports system reviewed and no additional complaints, except as documented and Reports as per HPI Respiratory Respiratory: Reports system reviewed and no additional complaints, except as documented and Reports as per HPI Gastrointestinal Gastrointestingal: Reports system reviewed and no additional complaints, except as documented and as per HPI Musculoskeletal Musculoskeletal: Reports system reviewed and no additional complaints, except as documented and Reports as per HPI Integumentary/Breasts Skin/Breast: Reports system reviewed and no additional complaints, except as documented, Reports as per HPI and Reports rash Neurologic Neurologic: Reports system reviewed and no additional complaints, except as documented
[2023-07-07 19:50] LABS: UTC Pregnancy Test, Urine Positive (Negative)
[2023-07-07 19:58] VITALS: BP 129/73; PULSE 86; RESP 17; TEMP 37.6; O2SAT 99
== END 2023-07-07 20:00 | disposition home or self-care (01) ==
PROVIDERS: Emergency Provider Nurse Practitioner
DX: R21 Rash and other nonspecific skin eruption (principal); F17.210 Nicotine dependence, cigarettes, uncomplicated; Z32.01 Encounter for pregnancy test, result positive
CPT/HCPCS: 81025; 99212; 99213; G0463

== ENCOUNTER → 2023-08-31 23:45 | Outpatient (CLI) | payer BC, SELFPAY | PROVIDERS: PCP Nurse Practitioner Obstetrics & Gynecology; Visit Provider Nurse Practitioner Obstetrics & Gynecology | DX: Z34.92 Encounter for supervision of normal pregnancy, unspecified, second trimester (principal); Z3A.26 26 weeks gestation of pregnancy ==

== ENCOUNTER → 2023-09-08 14:07 | Outpatient (CLI) | payer BC, SELFPAY ==
--- NOTE | 2023-09-08 14:11 | US_ITS ---
PROCEDURE: US OB /MATERNAL DETAIL CLINICAL INDICATION: 20 week anatomy scan COMPARISON: No exams were available for comparison FINDINGS: Transabdominal sonographic images of the pelvis were obtained. She is unsure of her last menstrual period. Single viable intrauterine gestation. Cephalic position. Placenta: Posteriorplacenta grade 1. There is an average amount of fluid. MVP 2.8 cm. The cervix appears satisfactory. Closed and measuring 2.7 cm in length. Complete survey performed and was unremarkable on the submitted images as in PACS. No discrete anomalies identified on survey imaging by technologist. Active fetus. Three-vessel cord with satisfactory umbilical cord insertion. 4- chamber heart noted. Situs, RVOT, aortic arch appear normal. Survey of brain & ventricles Unremarkable. Thalamus, cisterna magna, cerebellum, choroid plexus appear normal. Face and neck survey unremarkable. Profile, nasion, lips and nose appeared normal. Diaphragm and chest views unremarkable. Abdomen: Both kidneys noted and unremarkable. Stomach and bladder noted and satisfactory. Spine: Survey of the spine satisfactory with no anomalies identified nor imaged. Cervical, thoracic and lower spine appear normal. Both arms and legs noted. Amniotic Fluid: Adequate. Measurements: Average ultrasound age 26weeks 4days. Estimated due date by ultrasound age 0212/11/2023. Estimated weight 885g BPD = 27weeks 1day OFD = 26weeks 6days HC = 26weeks 5days AC = 26weeks FL = 26weeks Heart Rate = 125bpm Cerebellum = 26weeks 4days Humerus = 25weeks 6days HC/AC is 1.15 CI is 0.77 FL/BPD is 0.71 FL/AC is 0.22 IMPRESSION: 1. Viable fetus in the cephalic presentation with a posterior placenta grade 1. 2. The fluid is within normal limits. 3. Anatomical scan appears normal. 4. She measures 26 weeks and 4 days and her due date will be December 11, 2023. Dictated by: Kristian Saavedra MD 09/10/2023 12:33 Kristian Saavedra MD in [place] 09/10/2023 12:33
== END ==
PROVIDERS: PCP Nurse Practitioner Obstetrics & Gynecology; Visit Provider Nurse Practitioner Obstetrics & Gynecology
DX: Z34.92 Encounter for supervision of normal pregnancy, unspecified, second trimester (principal); Z3A.20 20 weeks gestation of pregnancy
CPT/HCPCS: 76811

== ENCOUNTER → 2023-09-28 15:17 | Outpatient (CLI) | payer BC, SELFPAY | PROVIDERS: PCP Physician Assistant; Visit Provider Obstetrics & Gynecology | DX: Z34.93 Encounter for supervision of normal pregnancy, unspecified, third trimester (principal); Z3A.30 30 weeks gestation of pregnancy | CPT/HCPCS: 36415 ==

== ENCOUNTER → 2023-09-29 15:21 | Outpatient (CLI) | payer BC, SELFPAY ==
[2023-09-29 15:54] LABS: Basophils # 0.1 K/mm3 (0-0.2); Basophils % 0.5 % (0.1-2.0); Eosinophils # 0.4 K/mm3 (0.0-0.4); Eosinophils % 3.6 % (0.1-12.0); Hematocrit 26.2 % (37.0-47.0); Hemoglobin 8.1 g/dL (12.2-16.2); Lymphocytes # 2.6 K/mm3 (0.7-4.5); Lymphocytes % 22.1 % (10-50); Mean Corpuscular Volume 58.1 fl (81-99); Monocytes # 0.3 K/mm3 (0.1-1.0); Monocytes % 2.8 % (1.7-9.3); Neutrophils # 8.3 K/mm3 (1.8-7.8); Neutrophils % 70.9 % (37.0-80.0); Platelet Count 339 K/mm3 (142-424); Red Blood Count 4.52 M/mm3 (4.20-5.40); Red Cell Distribution Width 17.5 % (11.5-17.5); White Blood Count 11.8 K/mm3 (4.8-10.8)
[2023-09-29 19:54] LABS: Total Iron Binding Capacity 613 ug/dL (265-497)
[2023-09-29 21:16] LABS: Ferritin 5.43 ng/ml (6.24-137)
[2023-10-01 10:08] LABS: Rapid Plasma Reagin Ab Titer Non Reactive titer (NonRea<1:1)
[2023-10-02 09:50] LABS: HIV Screen 4th Generation wRfx Non Reactive; Hepatitis B Surface Antigen Negative; Hepatitis C Antibody Non Reactive
== END ==
PROVIDERS: Nurse Practitioner Obstetrics & Gynecology; PCP Physician Assistant; Visit Provider Obstetrics & Gynecology
DX: O99.019 Anemia complicating pregnancy, unspecified trimester (principal); D50.9 Iron deficiency anemia, unspecified; Z3A.30 30 weeks gestation of pregnancy
CPT/HCPCS: 36415; 82728; 83550; 85025; 86593; 86703; 86762; 86850; 87340; 87380; G0432

== ENCOUNTER 2023-10-24 07:41 | Outpatient (CLI) | payer BC, SELFPAY | END 2023-10-24 23:59 | LOC: LAB.DROPOF 10-25 07:42 | PROVIDERS: PCP Physician Assistant; Visit Provider Nurse Practitioner Obstetrics & Gynecology | DX: Z34.93 Encounter for supervision of normal pregnancy, unspecified, third trimester (principal); Z3A.33 33 weeks gestation of pregnancy | CPT/HCPCS: 87086 ==

== ENCOUNTER 2023-10-30 14:19 | Outpatient (CLI) | payer BC, SELFPAY ==
--- NOTE | 2023-10-30 14:27 | US_ITS ---
PROCEDURE: US OB BIOPHYSICAL PROFILE CLINICAL INDICATION: sga COMPARISON: Ultrasound 09/08/2023. FINDINGS: Transabdominal sonographic images of the uterus were obtained. From her established due date she is 34weeks 5days. The following parameters are obtained: Viable fetus in the breech presentation with a posterior placenta grade 2 Average ultrasound age is 32weeks 5days. Estimated due date by ultrasound is 12/20/2023. Estimated weight is 4lb 9oz. Cervix measures 3.35 cm. heart rate: 120bpm BPD: 31 weeks 3 days HC: 33 weeks 4 days AC: 33 weeks 6 days FL: 31 weeks 6 days HC/AC: 1.01 Cephalic index: FL/BPD: 0.78 FL/AC: 0.2 8 percentile Amniotic fluid index: 9.35 cm, MVP 3.20. Qualitative AFV: 2 breathing movements: 2 Gross body movements: 2 Tone: 2 Biophysical profile score: 8 Doppler evaluation of the umbilical artery: SD ratio: 3.3-3.5 Resistive index: 0.72 No obvious anomalies evident.Kidneys, stomach, bladder, four-chamber heart, 3 vessel view, three-vessel cord appear normal. IMPRESSION: 1. Viable fetus in the breech presentation with a posterior placenta grade 2. 2. The fluid is within normal limits with an amniotic fluids of 9.35 cm, MVP 3.20 cm. 3. Biophysical profile 05/30 with good breathing movement and movement seen. 4. Fetus currently small for gestational age and both the head and femur measure 2 weeks behind. The AC is 1 week behind. 5. Ordering physician was notified. Dictated by: Kristian Saavedra MD 10/30/2023 16:40 Kristian Saavedra MD in OV 10/30/2023 16:40
== END 2023-10-30 23:59 ==
LOC: RAD 14:22
PROVIDERS: PCP Physician Assistant; Visit Provider Nurse Practitioner Obstetrics & Gynecology
DX: O36.5930 Maternal care for other known or suspected poor fetal growth, third trimester, not applicable or unspecified (principal); Z3A.33 33 weeks gestation of pregnancy
CPT/HCPCS: 76816; 76819; 76820

== ENCOUNTER 2023-11-21 16:05 | Outpatient (CLI) | payer BC, SELFPAY | END 2023-11-21 23:59 | LOC: LAB.DROPOF 16:05 | PROVIDERS: PCP Nurse Practitioner Obstetrics & Gynecology; Visit Provider Nurse Practitioner Obstetrics & Gynecology | DX: Z34.93 Encounter for supervision of normal pregnancy, unspecified, third trimester (principal); Z3A.37 37 weeks gestation of pregnancy | CPT/HCPCS: 86403 ==

== ENCOUNTER 2023-12-05 12:20 | Outpatient (CLI) | payer BC, SELFPAY ==
--- NOTE | 2023-12-05 12:28 | US_ITS ---
PROCEDURE: US OB FOLLOW UP CLINICAL INDICATION: breech presentation COMPARISON: No exams were available for comparison FINDINGS: Transabdominal sonographic images of the pelvis were obtained. The following parameters are obtained: From her established due date she is 39weeks 6days Viable fetus in the breech presentation with a posterior placenta grade 2. The cervix measures 2.8 cm. heart rate: 132bpm bpm. No obvious anomalies evident. Stomach, bladder, kidneys, three-vessel cord appear normal. IMPRESSION: 1. Viable fetus in the breech presentation with a posterior placenta grade 2. 2. The fluid is not measured but appears to be normal. 3. Fetus is active. 4. Limited anatomical scan appears normal. Dictated by: Kristian Saavedra MD 12/05/2023 13:47 Kristian Saavedra MD in [place] 12/05/2023 13:47
== END 2023-12-05 23:59 ==
LOC: RAD 12:20
PROVIDERS: PCP Nurse Practitioner Obstetrics & Gynecology; Visit Provider Nurse Practitioner Obstetrics & Gynecology
DX: O32.1XX0 Maternal care for breech presentation, not applicable or unspecified (principal)
CPT/HCPCS: 76816

== ENCOUNTER 2023-12-06 05:25 | Inpatient (IN) | payer BC, SELFPAY ==
[2023-12-06] VITALS (8 sets, daily range): BP systolic 123–139; BP diastolic 68–78; PULSE 66–83; RESP 14–20; TEMP 36.4–36.6; O2SAT 94–99; BMI 27.2; BMI 22.0
[2023-12-06] MEDS: LACTATED RINGERS 1000ML 1,000 ML 999 ML IV (06:10)
[2023-12-06 06:15] LABS: Microscopic, Urine URINE MICROSCOPIC (MICROSCOPIC)
[2023-12-06 06:23] LABS: Basophils % 0.3 % (0.1-2.0); Chloride 110 mmol/L (98-107); Eosinophils # 0.2 K/mm3 (0.0-0.4); Eosinophils % 1.7 % (0.1-12.0); Hematocrit 33.6 % (37.0-47.0); Hemoglobin 10.8 g/dL (12.2-16.2); Lymphocytes # 3.5 K/mm3 (0.7-4.5); Lymphocytes % 37.4 % (10-50); Mean Corpuscular Volume 68.8 fl (81-99); Mean Platelet Volume 9.7 fl (7.4-10.4); Monocytes # 0.3 K/mm3 (0.1-1.0); Monocytes % 3.1 % (1.7-9.3); Neutrophils # 5.4 K/mm3 (1.8-7.8); Neutrophils % 57.5 % (37.0-80.0); Platelet Count 272 K/mm3 (142-424); Red Blood Count 4.89 M/mm3 (4.20-5.40); White Blood Count 9.4 K/mm3 (4.8-10.8)
[2023-12-06 06:24] LABS: Potassium 3.9 mmoL/L (3.5-5.1); Sodium 136 mmol/L (136-145)
[2023-12-06 06:26] LABS: Alanine Aminotransferase 17 U/L (12-78); Aspartate Amino Transferase 30 U/L (14-36); Blood Urea Nitrogen 8 mg/dl (7-17); Creatinine Clearance Estimated 183 mL/min (50-200); Estimated Glomerular Filt Rate 154 ml/min (>60); GFR (African American) 187 ML/MIN (>60); Red Cell Distribution Width 25.4 % (11.5-17.5)
[2023-12-06 06:27] LABS: Albumin Level 3.3 g/dl (3.5-5.0); Alkaline Phosphatase 233 U/L (38-126); Anion Gap 9.9 mEq/L (5-15); Bilirubin,Total 0.2 mg/dl (0.2-1.3); Calcium 8.6 mg/dl (8.4-10.2); Carbon Dioxide 20 mmol/L (22.0-30.0); Globulin 3.2 g/dL (1.3-3.2); Glucose 90 mg/dl (74-100); Total Protein,Serum 6.5 g/dl (6.3-8.2)
[2023-12-06 06:44] LABS: Appearance,Urine CLEAR (Clear); Bilirubin,Urine Negative (Negative); Blood, Urine Negative (Negative); Color,Urine YELLOW (Yellow); Glucose,Urine (UA) Negative (Negative); Ketones,Urine Negative (Negative); Leukocyte Esterase,Urine TRACE (Negative); Nitrate,Urine Negative (Negative); PH,Urine 6.5 (5.0-8.5); Protein,Urine Negative (Negative); Urobilinogen,Urine 0.2 EU/dl (0.2)
[2023-12-06 06:58] LABS: Barbiturates Screen,Urine Negative ng/ml (<200); Benzodiazepines Screen,Urine Negative ng/ml (<200)
[2023-12-06 06:59] LABS: Amphetamine/Metha Screen,Urine Negative ng/ml (<1000); Cannabinoid Screen,Urine Negative ng/ml (<50)
[2023-12-06 07:00] LABS: Cocaine Screen,Urine Negative ng/ml (<300)
--- NOTE | 2023-12-06 07:15 | P.PNANES_ITS ---
[facility] Disclaimer: The information contained in this section may have been updated after the patient was seen, as this information can be updated by other users. Medical History Retained products of conception Surgical History No significant past surgical history Family History Other No significant family history Social History Smoking Status: Current every day smoker alcohol intake: never substance use type: heroin, amphetamines, opiates, methamphetamine and prescription drug current occupational status: employed Travel in the last 8 weeks: None [facility] Anesthesia Checklist Patient Identification Patient Identification: Arm Band and Verbal (Name & ) Structural Data Admitted From: Inpatient Planned Operative Procedure/s: C/section Consent for Planned Operative Procedure(s) Verified: Yes NPO Status Verified Time NPO: 00:00 Chart Verification Results Verified: CBC Additional verifications Patient : Yes Anesthesia Reactions: No Airway Assessment Mallampati Score:: Class II C-Spine Mobility Assessed: Yes TMJ Mobility Assessed: Yes Dentition: Good Dentition Neurological Assessment Level of Consciousness: Awake Hx Seizures: No Numbness or tingling in extremities: No Anesthesia Plan Anesthesia Risk discussed: Yes Anesthesia Plan: Verified ASA Class: II Anesthesia Type: Spinal
[2023-12-06] MEDS: CEFAZOLIN SODIUM 2 GM in 0.9 % SODIUM CHLORIDE 100 ML IV ×3 (07:25→23:22)
[2023-12-06 08:07] LABS: Squamous Epithelial Cell,Urine 20-50 #/hpf (0-5)
[2023-12-06 08:08] LABS: Bacteria,Urine Trace /lpf
--- NOTE | 2023-12-06 08:13 | SUR.OPER ---
TOB- 0753. Cord blood PH not able to be obtained, piece of cord not given off by the doctor before cord was clotted.
--- NOTE | 2023-12-06 08:43 | EXP.ANES.I ---
[facility] Anesthesia Record Part I Anesthesia Record I Intake, IV Amount: 1,000 Hydration: Adequate Estimated blood loss (mL): 400 Urine output (mL): 0 Blood Pressure: 134/68 SaO2: 99 Pulse Rate: 83 Airway Patency: Patent Respiratory Rate: 14 Temperature: 97.5 F Patient is:: Awake Stable to PACU at:: 08:35
[2023-12-06] MEDS: MORPHINE 2MG/ML SYRINGE 2 MG IV (08:51)
--- NOTE | 2023-12-06 09:02 | P.OP_ITS ---
Date of procedure: 12/06/23 Pre-op Diagnosis:: Term , breech presentation Post-op Diagnosis:: Term , breech presentation Procedure performed:: Primary lower segment transverse section Surgeon:: Kristian Saavedra MD Gear Tester(s):: Dr. Tellez WINDLACE MACHINE OPERATOR:: Kiran Gomez Anesthesia: spinal Estimated blood loss (mL): 361 Clinical Note:: She is a 23-year-old 4 para 2 aborta 1 who is 39 weeks 5 days gestational age. She is known to have a breech presentation and ultrasound confirmed this yesterday. After having discussed the risks and benefits we elected to perform a primary lower segment transverse section Operative findings:: She delivered a liveborn female child at 7:53 AM on the morning of December 06, 2023. Baby had Apgars of 8 at 1 minute and 9 at 5 minutes. Baby weighed 6 pounds 15 ounces. Ovaries and tubes appeared normal. Operative note:: She was taken to the operating room where spinal anesthesia was found be adequate. She was prepped and draped in normal sterile fashion in the supine position. A Rodgers catheter was in the bladder. A Pfannenstiel skin incision was made with knife then carried through to the underlying layer of fascia with cautery. The fascia was opened in the midline with cautery and extended laterally using Diaz scissors. Eros clamps were joshua lied to the superior aspect of the fascial incision which was tented up and the underlying rectus muscles dissected off using cautery. The [place] clamps were then applied to the inferior aspect of the fascial incision which in a similar fashion was tented up and the underlying rectus muscles dissected off using cautery. The rectus muscles were then in the midline, the peritoneum identified, and entered sharply.. An Donnell retractor was then inserted into the abdominal cavity. Bladder peritoneum was opened in the midline and extended laterally using Metzenbaum scissors. Transverse incision was made through the uterine muscle through to the amnion. This incision was then extended superiorly and inferiorly using the fingers as traction. The amnion was entered sharply with knife. There was clear amniotic fluid. The 's breech was then delivered atraumatically. This was followed by the shoulders and then the after coming head. The oropharynx and nasopharynx were bulb suctioned. The infant was vigorous so we allowed the cord to continue to pulsate for approximately 1 minute. The cord was then doubly clamped and cut. The was then handed off to Dr. Strickland assigned Apgars of 8 at 1 minute and 9 at 5 minutes. We then obtained cord blood. Using gentle traction on the cord and fundal massage I was able to easily deliver the placenta intact. It had a normal three-vessel cord. The uterus was then cleared of clots and debris . The uterine incision was then closed using running 0 Vicryl suture in a locked fashion. A second layer of the same suture was used to imbricate the first layer. The bladder peritoneum was then closed using running 2-0 Vicryl suture in a locked fashion. The gutters and cul-de-sac were then cleared of clots and debris . Once again hemostasis was assured. There was a small amount of bleeding on the fundus of the uterus and I placed interrupted 2-0 Vicryl sutures here. I then placed a piece of Surgicel over the area of bleeding. It was found to be hemostatic. I elected to place a large piece of Surgicel along the uterine incision. The peritoneum was then closed with 2-0 Vicryl suture followed by reapproximation of the rectus muscle using 0 Vicryl suture. The fascia was closed using running #1 Vicryl suture. The subcutaneous tissues were then irrigated with warm water followed by closure Nicanor's fascia using running 2-0 Monocryl suture. The skin was closed with absorbable amos. I then cleaned the skin with Hibiclens. Steri-Strips were applied to the incision. Sterile dressings were applied. Anesthesia then performed a tap block under ultrasound guidance. She tolerated the procedure well and was taken to the recovery room in excellent condition. All sponges, instrument and needle counts were correct. Estimated blood loss was measured to be 361 mL.. Condition: stable Disposition: PACU Specimens:: None Complications:: None
--- NOTE | 2023-12-06 09:03 | SUR.PHASEI ---
PACU Note- Unable to print PACU strip on monitor. Attempted multiple times and it would not print. Mother did remain in NSR throughout PACU phase
[2023-12-06 09:04] LABS: Microscopic,Cath URINE MICROSCOPIC (MICROSCOPIC)
--- NOTE | 2023-12-06 09:07 | EXP.HP ---
History of Present Illness *Admission Date: 12/06/23 *Reason for visit:: Term , breech presentation *History of present illness: She is a 23-year-old 4 para 2 at 39 weeks and 5 days gestational age. She is known to have breech presentation. Ultrasound yesterday confirmed this. O+ blood, Rubella immune GBS negative PFSH PFSH Disclaimer: The information contained in this section may have been updated after the patient was seen, as this information can be updated by other users. Medical History Retained products of conception Surgical History No significant past surgical history Family History No significant family history Social History Smoking Status: Current every day smoker alcohol intake: never substance use type: heroin, amphetamines, opiates, methamphetamine and prescription drug current occupational status: employed Travel in the last 8 weeks: None Review of Systems Review of Systems Review of systems:: pertinent systems reviewed and negative unless documented below Meds Home Medications and Allergies Home Medications Medication Instructions Recorded Confirmed Type ferrous sulfate 325 mg (65 mg 325 mg PO DAILY #30 tabs 12/01/22 11/28/23 Rx iron) tablet prenat.vits,phong,ipj-crdb-czbrf 1 tab PO DAILY #30 tabs 12/01/22 11/28/23 Rx buprenorphine HCl 8 mg sublingual 8 mg sublingual BID 11/28/23 11/28/23 History tablet New Prescriptions to Start Prescriptions: Allergies Allergy/AdvReac Type Severity Reaction Status Date / Time No Known Allergies Allergy Verified 11/28/23 15:10 Exam Data for Last 24 hours Vital signs and Labs for Last 24 Hours: Temp Pulse Resp BP Pulse Ox O2 Del Method 97.5 F L 78 17 133/74 99 Room Air 12/06/23 08:43 12/06/23 09:05 12/06/23 09:05 12/06/23 09:05 12/06/23 09:05 12/06/23 09:05 Laboratory Results - last 24 hr 12/06/23 05:40: Urine Color Yellow, Urine Appearance Clear, Urine pH 6.5, Ur Specific Mcgrew 1.020, Urine Protein Negative, Urine Glucose (UA) Negative, Urine Ketones Negative, Urine Blood Negative, Urine Nitrate Negative, Urine Bilirubin Negative, Urine Urobilinogen 0.2, Ur Leukocyte Esterase Trace, Urine RBC None, Urine WBC 5-10, Ur Squamous Epith Cells 20-50, Urine Bacteria Trace, Ur Barbituates Screen Negative, Ur Amphetamines Screen Negative, U Benzodiazepines Scrn Negative, Urine Cocaine Screen Negative, U Marijuana (THC) Screen Negative 12/06/23 06:05: WBC 9.4, RBC 4.89, Hgb 10.8 L, Hct 33.6 L, MCV 68.8 L, MCH 22.0 L, MCHC 32.0, RDW 25.4 H*, Plt Count 272, MPV 9.7, Neut % (Auto) 57.5, Lymph % (Auto) 37.4, Angelina % (Auto) 3.1, Eos % (Auto) 1.7, Baso % (Auto) 0.3, Neut # (Auto) 5.4, Lymph # (Auto) 3.5, Angelina # (Auto) 0.3, Eos # (Auto) 0.2, Baso # (Auto) 0.0, Sodium 136, Potassium 3.9, Chloride 110 H, Carbon Dioxide 20 L, Anion Gap 9.9, BUN 8, Creatinine 0.50 L, Estimated Creat Clear 183, Estimated GFR 154, Est GFR ( Amer) 187, Glucose 90, Calcium 8.6, Total Bilirubin 0.2, AST 30, ALT 17, Alkaline Phosphatase 233 H, Total Protein 6.5, Albumin 3.3 L, Globulin 3.2, Albumin/Globulin Ratio 1.0 L, Blood Type O Positive I & O for Last 24 hours: Intake & Output 12/03/23 12/04/23 12/05/23 12/06/23 11:59 11:59 11:59 11:59 Intake Total 1000 / 1000 Balance 1000 / 1000 Weight 145 lb Constitutional Constitutional: no acute distress *Routine HEENT Exam Head: Present normocephalic Eye: Present EOMI and PERRL ENT: Present mucous membranes moist *Routine Neck Exam Neck: Present supple; Absent lymphadenopathy *Routine Respiratory Exam Respiratory: Present CTA bilaterally *Routine Cardiovascular Exam Cardiovascular: Present RRR *Routine Abdominal Exam Abdominal: Present soft and normoactive bowel sounds; Absent tenderness *Routine Rectal Exam Rectal:: deferred *Routine Genitalia Exam Genitalia:: deferred *Routine Extremities Exam Extremities: Absent cyanosis, clubbing or edema *Routine Skin Exam Skin: Present warm; Absent rash *Routine Neurological Exam Neurological: Present alert and oriented X3 Assessment and Plan *Assessment and plan (1) Breech presentation of fetus: Status: Acute Qualifiers: Fetus number: single or unspecified fetus Qualified Code(s): O32.1XX0 - Maternal care for breech presentation, not applicable or unspecified Category: Medical Code(s): O32.1XX0 - Maternal care for breech presentation, not applicable or unspecified (2) complicated by Suboxone maintenance, antepartum: Status: Acute Category: Medical Code(s): O99.320 - Drug use complicating , unspecified trimester; F11.20 - Opioid dependence, uncomplicated Plan She is admitted for primary lower segment transverse section.
[2023-12-06] MEDS: OXYTOCIN/RINGERS LACTATE 30 UNITS/500 ML BAG 40 UNITS IV (09:30)
[2023-12-06] MEDS: HYDROMORPHONE 2MG/ML SYRINGE 1 MG IV (09:55)
--- NOTE | 2023-12-06 09:58 | EXP.ANES.II ---
[facility] Anesthesia Record Part II Anesthesia Record Part II Discharge Time: 09:05 Destination: Obstetric PACU nurse assessment reviewed?: Yes Patient Condition:: Good Anesthesia Complications:: None Swallowing reflex intact?: Yes Airway Patency: Patent Cyanosis?: No Blood Pressure: 133/74 SaO2: 99 Respiratory Rate: 17 Pulse Rate: 78 Temperature: 97.5 F Mental Status: Alert & Oriented Pain level:: 4 Nausea and/or vomitting:: None Intake, IV Amount: 0 Hydration: Adequate
[2023-12-06] MEDS: NICOTINE 21MG/24HR PATCH 21 MG TD (10:01)
[2023-12-06 10:02] LABS: Appearance,Urine/Cath CLEAR (Clear); Bilirubin,Cath Negative (Negative); Blood, Urine/Cath Negative (Negative); Color,Urine/Cath YELLOW (Yellow); Glucose,Urine/Cath (UA) Negative (Negative); Ketones,Urine/Cath Negative (Negative); Leukocyte Esterase,Cath Negative (Negative); Nitrate,Cath Negative (Negative); Protein,Urine/Cath TRACE (Negative)
--- NOTE | 2023-12-06 10:28 | P.CONPHA_ITS ---
Pharmacy Intervention Comments: MEDICATION RECONCILIATION COMPLETED ON PATIENT USING EXTERNAL FILL HISTORY FROM PHARMACY AND ANI REPORT. SUBUTEX DOSE VERIFIED WITH [facility]. -[address], [place]
[2023-12-06] MEDS: OXYCODONE 5MG IMMEDIATE RELEASE TABLET 10 MG PO ×2 (10:44→15:25)
[2023-12-06] MEDS: BUPRENORPHINE 8MG ODT 16 MG SL (11:04)
[2023-12-06 11:52] LABS: Opiate Screen,Urine Negative ng/ml (<300)
[2023-12-06 11:53] LABS: Phencyclidine Screen,Urine Negative ng/ml (<25)
[2023-12-06 11:55] LABS: Methadone Screen,Urine Negative ng/ml (<300)
[2023-12-06] MEDS: ACETAMINOPHEN 500MG TAB 1000 MG PO ×3 (11:57→23:28)
[2023-12-06] MEDS: IBUPROFEN 400 MG TABLET 800 MG PO (11:57)
[2023-12-06 12:14] LABS: Bacteria,Urine/Cath TRACE /lpf
[2023-12-06] MEDS: KETOROLAC 30MG/ML VIAL 30 MG IV ×2 (16:21→23:22)
[2023-12-06] MEDS: PRENATAL MULTIVITAMIN W/IRON 1 EACH PO (18:10)
[2023-12-07] MEDS: KETOROLAC 30MG/ML VIAL 30 MG IV ×2 (04:33→09:02)
[2023-12-07] MEDS: OXYCODONE 5MG IMMEDIATE RELEASE TABLET 10 MG PO ×4 (05:22→20:02)
[2023-12-07 06:03] LABS: Basophils % 0.4 % (0.1-2.0); Eosinophils # 0.1 K/mm3 (0.0-0.4); Eosinophils % 1.5 % (0.1-12.0); Hematocrit 32.4 % (37.0-47.0); Hemoglobin 10.4 g/dL (12.2-16.2); Lymphocytes % 25.5 % (10-50); Mean Corpuscular HGB Conc 32.1 g/dL (31.8-35.4); Mean Corpuscular Hemoglobin 22.6 pg (27.0-31.2); Mean Corpuscular Volume 70.3 fl (81-99); Mean Platelet Volume 9.4 fl (7.4-10.4); Monocytes # 0.3 K/mm3 (0.1-1.0); Monocytes % 3.7 % (1.7-9.3); Neutrophils # 5.4 K/mm3 (1.8-7.8); Platelet Count 185 K/mm3 (142-424); Red Blood Count 4.61 M/mm3 (4.20-5.40); White Blood Count 7.8 K/mm3 (4.8-10.8)
[2023-12-07 06:04] LABS: Red Cell Distribution Width 25.5 % (11.5-17.5)
[2023-12-07] MEDS: ACETAMINOPHEN 500MG TAB 1000 MG PO ×3 (06:08→18:43)
[2023-12-07] MEDS: BUPRENORPHINE 8MG ODT 16 MG SL (09:03)
--- NOTE | 2023-12-07 09:07 | SW/DCPLANNER ---
Addendum entered by Alicia Elizondo 12/11/23 10:43: Infant cord screen is only positive for Suboxone. Original Note: I received a referral on this patient regarding: previous drug use and enrolled in Suboxone Clinic. Patient delivered infant female (first name unknown last name Judy) on 12/06/2023. Patient and her mother were present at the time of my visit. Patient stated that 's father is not involved. Patient will reside at [address] [place] [address] in [place] [address] w/ and her two other children (Lianet Kim 05/17/18 and Suzanne Kim 06/02/21). Patient stated no past Social Service involvement aside from hospital visit. Patient will be established w/ WIC. Patient stated that she has the following items at home: crib, carseat, clothing, diapers and will be bottle/breast feeding. PED MD will be w/ [facility]. Patient stated that she will have transportation to all follow up appointments. Patient is currently enrolled w/ services at [facility] in [place]. Discharge date is unknown at this time. I have requested OB staff ([place]) to follow up w/ me if any needs/questions come up prior to discharge.
[2023-12-07] MEDS: NICOTINE 21MG/24HR PATCH 21 MG TD (10:36)
[2023-12-07] MEDS: LANOLIN CREAM 40GM TP (11:01)
[2023-12-07] MEDS: PRENATAL MULTIVITAMIN W/IRON 1 EACH PO (17:26)
[2023-12-07] MEDS: SIMETHICONE 80MG CHEWABLE TABLET 160 MG PO (18:43)
[2023-12-07 20:02] VITALS: BP 130/76; PULSE 74; RESP 18; TEMP 36.9; O2SAT 98
[2023-12-07] MEDS: KETOROLAC 10MG TABLET 10 MG PO (22:03)
[2023-12-08] MEDS: ACETAMINOPHEN 500MG TAB 1000 MG PO ×4 (00:12→20:10)
[2023-12-08] MEDS: KETOROLAC 10MG TABLET 10 MG PO ×4 (04:06→22:10)
[2023-12-08] MEDS: BUPRENORPHINE 8MG ODT 16 MG SL (09:18)
--- NOTE | 2023-12-08 09:41 | EXP.ACUTE.PN ---
Subjective *Date: 12/08/23 *Time: 09:41 Interval history: She is doing well but still has considerable pain. She has been taking 5 mg of oxycodone as well as 10 mg of Toradol. I suspect that her receptors are completely blocked. She is attempting to breast-feed but does not have any breast milk yet. Medical Exam Vital signs and Labs for Last 24 Hours: Vital Signs Temp Pulse Resp BP Pulse Ox O2 Del Method 12/07/23 20:02 98.4 F 74 18 130/76 98 Room Air I & O for Labs for Last 24 Hours: Intake & Output 12/05/23 12/06/23 12/07/23 12/08/23 11:59 11:59 11:59 11:59 Intake Total 1000 / 1000 Output Total 1400 / 1400 Balance 1000 / 1000 -1400 / -1400 Weight 145 lb Head: Present atraumatic and normocephalic ENT: Present normal exam Neck: Present normal inspection Respiratory: Present normal respiratory effort; Absent accessory muscle use GI: Present soft and tenderness; Absent distention, guarding or rebound Comments:: Her incision is clean and dry. Assessment and Plan *Assessment and plan (1) complicated by subutex maintenance, antepartum: Status: Acute Category: Medical Code(s): O99.320 - Drug use complicating , unspecified trimester; F11.20 - Opioid dependence, uncomplicated (2) delivery delivered: Status: Acute Category: Medical Code(s): O82 - Encounter for delivery without indication (3) Breech presentation delivered: Status: Acute Category: Medical Code(s): O32.1XX0 - Maternal care for breech presentation, not applicable or unspecified (4) Microcytic anemia: Status: Acute Category: Medical Code(s): D50.9 - Iron deficiency anemia, unspecified Plan We will continue with her Toradol 10 mg every 6 hours. We will start gabapentin 100 mg every 8 hours. We will increase the oxycodone to 10 mg every 4-6 hours. We will plan to keep her for another 24 hours at least.
[2023-12-08] MEDS: SIMETHICONE 80MG CHEWABLE TABLET 160 MG PO (09:51)
[2023-12-08] MEDS: GABAPENTIN 100MG CAPSULE 100 MG PO ×2 (09:52→17:58)
[2023-12-08] MEDS: PRENATAL MULTIVITAMIN W/IRON 1 EACH PO (16:16)
[2023-12-08] MEDS: OXYCODONE 5MG IMMEDIATE RELEASE TABLET 10 MG PO (16:17)
[2023-12-08 16:42] VITALS: BP 134/74; PULSE 77; RESP 16; TEMP 36.9; O2SAT 97
[2023-12-08 19:35] VITALS: BP 146/86; PULSE 85; RESP 17; TEMP 36.9; O2SAT 97
[2023-12-09] MEDS: ACETAMINOPHEN 500MG TAB 1000 MG PO ×2 (02:36→10:11)
[2023-12-09] MEDS: GABAPENTIN 100MG CAPSULE 100 MG PO ×2 (02:36→10:12)
[2023-12-09 04:06] VITALS: BP 134/73; PULSE 68; RESP 17; TEMP 36.8; O2SAT 96
[2023-12-09] MEDS: KETOROLAC 10MG TABLET 10 MG PO ×2 (04:07→10:10)
[2023-12-09] MEDS: BUPRENORPHINE 8MG ODT 16 MG SL (08:12)
--- NOTE | 2023-12-09 11:34 | EXP.DC.SUM ---
General Admission date:: 12/06/23 Discharge date: 12/09/23 HPI HPI HPI: She is a 23-year-old 4 para 2 at 39 weeks and 5 days gestational age. She is known to have breech presentation. Ultrasound yesterday confirmed this. She is admitted for primary lower segment transverse section. O+ blood, Rubella immune GBS negative Hospital Course Hospital Course Hospital Course: On December 06, 2023 she underwent a primary lower segment transverse section and delivered a liveborn female child at 7:53 AM. The baby had Apgars of 8 at 1 minute and 9 at 5 minutes. Baby weighed 6 pounds 15 ounces. 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 Strickland. She has done well and has remained afebrile throughout hospitalization. We have had difficulty controlling her pain because she has been taking Subutex throughout her . I suspect that the pain receptors are completely blocked. We have tried gabapentin as well as 10 mg of oxycodone and this really did not help much. She is also been taking Toradol. She is discharged home to follow-up with me in approximately 2 weeks time. She will continue with her vitamins and iron. She does have microcytic anemia. She has O+ blood, she is rubella immune and was group B streptococcus negative. We have given her a prescription for Percocet 5/325 number 20 tablets as well as Toradol 10 mg number 20 tablets. She will be given a prescription for iron tablets as well. She will take ibuprofen and she has been given a prescription for this. Her condition on discharge is stable and improved. Exam Data for Last 24 hours Vital signs and Labs for Last 24 Hours: Temp Pulse Resp BP Pulse Ox O2 Del Method 98.3 F 68 17 134/73 96 Room Air 12/09/23 04:06 12/09/23 04:06 12/09/23 04:06 12/09/23 04:06 12/09/23 04:06 12/09/23 04:06 I & O for Last 24 hours: Intake & Output 12/06/23 12/07/23 12/08/23 12/09/23 11:59 11:59 11:59 11:59 Intake Total 1000 / 1000 Output Total 1400 / 1400 Balance 1000 / 1000 -1400 / -1400 Weight 145 lb Constitutional Constitutional: no acute distress *Routine HEENT Exam Head: Present normocephalic *Routine Respiratory Exam Respiratory: Present normal respiratory effort; Absent accessory muscle use *Routine Abdominal Exam Abdominal: Present soft and tenderness; Absent distended Comments: Her incision is clean and dry. DS: Diagnosis Discharge Diagnosis (1) complicated by subutex maintenance, antepartum: Status: Acute Code(s): O99.320 - Drug use complicating , unspecified trimester; F11.20 - Opioid dependence, uncomplicated (2) delivery delivered: Status: Acute Code(s): O82 - Encounter for delivery without indication (3) Breech presentation delivered: Status: Acute Code(s): O32.1XX0 - Maternal care for breech presentation, not applicable or unspecified (4) Microcytic anemia: Status: Acute Code(s): D50.9 - Iron deficiency anemia, unspecified Meds Home Medications and Allergies Home Medications Medication Instructions Recorded Confirmed Type buprenorphine HCl 8 mg sublingual 16 mg sublingual DAILY 11/28/23 12/06/23 History tablet vit no.95-ferrous 1 tab PO DAILY 12/06/23 12/06/23 History fumarate 28 mg-folic acid 800 mcg tablet () ferrous sulfate 325 mg (65 mg 325 mg PO DAILY Supplement #30 tabs 12/09/23 Rx iron) tablet gabapentin 100 mg capsule 100 mg PO TID #20 caps 12/09/23 Rx ketorolac 10 mg tablet 10 mg PO Q6H #20 tabs 12/09/23 Rx oxycodone-acetaminophen 5 mg-325 2 tab PO Q6H PRN pain #20 tabs 12/09/23 Rx mg tablet New Prescriptions to Start Prescriptions: ferrous sulfate Kristian Saavedra gabapentin Kristian Saavedra ketorolac Kristian Saavedra oxycodone-acetaminophen Kristian Saavedra Allergies Allergy/AdvReac Type Severity Reaction Status Date / Time No Known Allergies Allergy Verified 11/28/23 15:10 Discharge Plan Disposition Patient Disposition: Home, Self-Care Condition: Good Discharge Order Discharge Orders: Discharge Order (Routine); Ordered 12/09/23 Ordered By: Kristian Saavedra Follow up Plan Follow up with: Kristian Saavedra MD [Staff Physician] - 2 weeks (CALL MONDAY TO SCHEDULE A FOLLOW UP APPOINTMENT.) Prescriptions/Medication Reconciliation: New ketorolac 10 mg Tablet 10 mg PO Q6H Qty: 20 0RF oxycodone-acetaminophen 5-325 mg tablet 2 tab PO Q6H PRN (Reason: pain) Qty: 20 0RF gabapentin 100 mg capsule 100 mg PO TID Qty: 20 0RF Continued buprenorphine HCl 8 mg tablet, sublingual 16 mg sublingual DAILY PNV cmb#95-ferrous fumarate-FA [] 28 mg iron- 800 mcg Tablet 1 tab PO DAILY ferrous sulfate 325 mg (65 mg iron) tablet 325 mg PO DAILY Qty: 30 2RF Problem Reconciliation Problems Reviewed?: Yes Patient Discharge Instructions ACTIVITY: No heavy lifting DIET: continue same diet and regular diet Additional Instructions: CALL 'S OFFICE MONDAY TO SCHEDULE A FOLLOW UP APPOINTMENT. Patient Instructions: Pre-eclampsia, Depression, Hemorrhage, DI for Providers Primary Care Provider: Provider,Referral Admit Provider: Kristian Saavedra Attending Provider: Kristian Saavedra
[2023-12-13 04:09] LABS: Buprenorphine, Urine Positive (Cutoff=10)
== END 2023-12-09 15:30 | disposition home or self-care (01) | DRG 787 ==
PROVIDERS: Admitting Provider Nurse Practitioner Obstetrics & Gynecology; Visit Provider Nurse Practitioner Obstetrics & Gynecology
PROC: 10D00Z1 Extraction of Products of Conception, Low, Open Approach (ICD-10-PCS; CPT 59514; principal; 2023-12-06 07:30)
DX: O32.1XX0 Maternal care for breech presentation, not applicable or unspecified (principal); F11.20 Opioid dependence, uncomplicated; O99.324 Drug use complicating childbirth; Z3A.39 39 weeks gestation of pregnancy; Z37.0 Single live birth; O90.81 Anemia of the puerperium; D50.9 Iron deficiency anemia, unspecified
CPT/HCPCS: 59514; 59025; 76816; 80053; 80307; 81001; 85025; 86850; 94761; C9290; G0283; J0571; J2405

== ENCOUNTER 2024-07-13 16:28 | Emergency (ER) | payer BC, SELFPAY ==
[2024-07-13 17:03] VITALS: BP 109/74; PULSE 106; RESP 16; TEMP 36.5; O2SAT 99; BMI 25.7
--- NOTE | 2024-07-13 17:34 | ED_ITS ---
Discharge Plan Disposition Patient Disposition: Home, Self-Care Condition: Good Prescriptions Prescriptions: New azithromycin [Zithromax] 250 mg tablet 250 mg PO UD DOSE PK Qty: 6 0RF Rx Instructions: Take two (2) tablets today, then one (1) tablet days #2 thru #5 methylprednisolone 4 mg Tablets,Dose Pack 4 mg PO DIRECTED 6 Days Qty: 21 0RF Rx Instructions: Take 1 pack as directed for 6 days hjedmzjsprrgzmy-pbivgobpy-LR [Bromfed DM] 2-30-10 mg/5 mL Syrup 5 ml PO Q6H PRN (Reason: Cough) Qty: 240 0RF No Action buprenorphine-naloxone 8-2 mg tablet, sublingual 2 tab sublingual DAILY Patient Comments: PLACE 2 TABLETS UNDER THE TONGUE ONCE DAILY DIRECTED ferrous sulfate 325 mg (65 mg iron) tablet 325 mg PO DAILY Qty: 30 2RF norethindrone-e.estradiol-iron [Loestrin Fe 11/11 (28-Day)] 1 mg-20 mcg (21)/75 mg (7) tablet 1 tab PO DAILY Qty: 84 4RF Referrals Follow up/Referrals: Provider,Referral, MD [Primary Care Provider] - See instructions Activity Restrictions/Add. Instructions Additional Instructions/Restrictions: Drink plenty of fluids. Take tylenol or ibuprofen for pain or fever. Take the medications as directed. Follow up with your regular doctor. GO TO THE ER FOR ANY WORSENING SYMPTOMS Clinical Impressions Clinical Impression: Pharyngitis, Bronchitis Instructions Patient Instructions: DI for Pharyngitis/Tonsillopharyngitis -- Adult, DI for Acute Bronchitis Print Language Print Language: Samoan Discharge ED Provider: Gary Barry [facility] [place] HPI General Stated complaint: sore throat, cough Mode of Arrival: Ambulatory Source of Information: Patient Limitations: No Limitations Time Seen by Provider: 07/13/24 17:31 Description of Symptoms (Recalled from Triage Doc. by RN): Reports cough and congestion. HEENT Symptoms (Recalled from RN notes): Yes Resp Symptoms (Recalled from RN notes): No Skin Symptoms (Recalled from RN notes): No MS Symptoms (Recalled from RN notes): No Functional Status (Recalled from RN notes): wnl Related Data Home Medications ?Medication ?Instructions ?Recorded ?Confirmed buprenorphine 8 mg-naloxone 2 mg 2 tab sublingual DAILY 01/24/24 01/24/24 sublingual tablet Previous Rx's ?Medication ?Instructions ?Recorded ferrous sulfate 325 mg (65 mg 325 mg PO DAILY Supplement #30 tabs 01/24/24 iron) tablet norethindrone 1 mg-ethinyl 1 tab PO DAILY #84 tabs 01/24/24 estradiol 20 mcg (21)-iron 75 mg (7) tablet (Loestrin Fe 11/11 (28-Day)) azithromycin 250 mg tablet 250 mg PO UD DOSE PK #6 tabs 07/13/24 (Zithromax) afklljqbpwimxjl-ravnitejlfrnlrg-EW 5 ml PO Q6H PRN Cough #240 mL 07/13/24 2 mg-30 mg-10 mg/5 mL oral syrup (Bromfed DM) methylprednisolone 4 mg tablets in 4 mg PO DIRECTED 6 days #21 tabs 07/13/24 a dose pack Allergies Allergy/AdvReac Type Severity Reaction Status Date / Time No Known Allergies Allergy Verified 01/24/24 15:08 Worker's Comp Is this a Worker's Comp case?: No [facility] Disclaimer: The information contained in this section may have been updated after the patient was seen, as this information can be updated by other users. Medical History Bipolar 1 disorder Incomplete Miscarriage Surgical History History of delivery Hx of dilation and curettage Family History Other No significant family history Social History Smoking Status: Current every day smoker alcohol intake: never substance use type: heroin, amphetamines, opiates, methamphetamine and prescription drug current occupational status: employed Travel in the last 8 weeks: None ROS Obtained: Yes All systems reviewed & no additional complaints except as documented Constitutional Constitutional: Reports chills and Reports fever(s) Eyes Eyes: Denies eye discharge ENT Ears, Nose, Mouth, and Throat: Reports as per HPI Cardiovascular Cardiovascular: Denies chest pain Respiratory Respiratory: Denies chest congestion and Reports cough Gastrointestinal Gastrointestingal: Reports nausea; Denies abdominal pain, constipation, cramping, diarrhea or vomiting Musculoskeletal Musculoskeletal: Denies arthralgias Integumentary/Breasts Skin/Breast: Denies rash Neurologic Neurologic: Denies paresthesias Physical Exam General General appearance: alert and in no apparent distress Head Head exam: atraumatic, normocephalic and normal inspection Eye Eye exam: Present normal appearance, PERRL and EOMI ENT ENT exam: Present mucous membranes moist and normal external ear exam Expanded ENT Exam TM/Canal exam: Bilateral TM: erythema and bulging Nose exam: Absent sinus tenderness Mouth exam: Present normal external inspection; Absent drooling Teeth exam: Present normal inspection Throat exam: Present tonsillar erythema, tonsillomegaly and tonsillar exudate Neck Neck exam: Present normal inspection, full ROM and trachea midline; Absent tenderness, meningismus or lymphadenopathy Chest Chest inspection: Present normal inspection and symmetric chest wall rise; Absent tenderness Respiratory Respiratory exam: Present normal lung sounds bilaterally; Absent respiratory distress, wheezes, stridor or accessory muscle use Cardiovascular Cardiovascular exam: Present regular rate and normal rhythm; Absent systolic murmur or diastolic murmur Abdominal Exam Abdominal exam: Present soft and normal bowel sounds; Absent distention, tenderness, guarding, rebound or rigidity Extremities Exam Extremities exam: Present normal inspection and normal capillary refill; Absent calf tenderness Back Exam Back exam: Present normal inspection and full ROM; Absent tenderness, CVA tenderness (R) or CVA tenderness (L) Neurological Exam Neurological exam: Present alert, oriented X3 and CN II-XII intact Psychiatric Psychiatric exam: Present normal affect and normal mood Skin Skin exam: Present warm, dry, intact and normal color Medical Decision Making Medical Records Medical records reviewed: No I reviewed the patient's medical records. Screening: Per USPSTF and CDC recommendations, given the prevalence of disease in our region, it is our hospital?s policy to screen for HIV and viral Hepatitis for all patients aged 18 and over and those with ongoing risk factors. Jimmy Inquiry Pt receiving controlled substance: No Vital Signs: 07/13/24 17:03 Temperature 97.7 F Temperature Source Temporal Artery Scan Pulse Rate [Radial] 106 H Respiratory Rate 16 Blood Pressure [Right Arm] 109/74 L Blood Pressure Mean [Right Arm] 85 Blood Pressure Source [Right Arm] Automatic Cuff Blood Pressure Position [Right Arm] Sitting 02 Sat by Pulse Oximetry 99 Oxygen Delivery Method Room Air Lab Data Lab results reviewed: Yes I reviewed the patient's lab results.
[2024-07-13 17:59] VITALS: BP 109/74; PULSE 106; RESP 16; TEMP 36.5; O2SAT 99
== END 2024-07-13 18:00 | disposition home or self-care (01) ==
PROVIDERS: Emergency Provider Nurse Practitioner Family
DX: J20.9 Acute bronchitis, unspecified (principal); J02.9 Acute pharyngitis, unspecified; R09.81 Nasal congestion
CPT/HCPCS: 87635; 99212; 99214; G0463

== ENCOUNTER 2024-12-13 15:53 | Emergency (ER) | payer OTHER, SELFPAY ==
[2024-12-13 15:57] VITALS: BP 123/76; PULSE 62; RESP 18; TEMP 36.5; O2SAT 96; BMI 25.7
[2024-12-13 16:05] LABS: Coronavirus 19, PCR Not Detected (NotDetected); Influenza B, PCR Not Detected (NotDetected)
--- NOTE | 2024-12-13 16:07 | ED_ITS ---
<Statement entered by David Dye MD - 12/13/24 23:17> I was consulted by the MATEO, and we discussed the complexity of the problems being addressed. I approved the treatment and management plan for this patient's care in the emergency department, thus performing a substantive portion of the medical decision making. David Dey MD, NOE, FACEP Discharge Plan Disposition Patient Disposition: Home, Self-Care Condition: Good Prescriptions Prescriptions: New ruaolveiueelsjp-szqvehtbs-UN [Bromfed DM] 2-30-10 mg/5 mL syrup 5 ml PO Q4H PRN (Reason: sinus symptoms) Qty: 118 0RF No Action buprenorphine-naloxone 8-2 mg tablet, sublingual 2 tab sublingual DAILY Patient Comments: PLACE 2 TABLETS UNDER THE TONGUE ONCE DAILY DIRECTED norethindrone-e.estradiol-iron [Loestrin Fe 11/11 (28-Day)] 1 mg-20 mcg (21)/75 mg (7) tablet 1 tab PO DAILY Qty: 84 4RF Referrals Follow up/Referrals: Provider,Referral, [Primary Care Provider] - See instructions Activity Restrictions/Add. Instructions Additional Instructions/Restrictions: Please continue to take Tylenol alternating with Motrin every 4 hours as needed for body aches and fever. I have sent Bromfed into your pharmacy that you may take every 4 hours as well. If you have continued new or worsening signs or symptoms follow-up with your PCP or return to the ER as needed. Clinical Impressions Clinical Impression: Influenza A Stand Alone Forms Stand Alone Forms: Work/School Release Print Language Print Language: Faroese Discharge ED Provider: David Dye General Adult HPI General Chief complaint: Upper Respiratory Infection Stated complaint: sorre throat, chest sumaya Time Seen by Provider: 12/13/24 16:07 Mode of Arrival: Ambulatory Source of Information: Patient Limitations: No Limitations Description of Symptoms (Recalled from ER Triage Doc. by RN): Pt presents for evaluation of sore throat, chest congestion, dry cough x 1 day History of Present Illness HPI narrative: Patient presents for evaluation of sore throat congestion cough for 24 hours. Patient denies fever chills hemoptysis hematochezia melena nausea vomit diarrhea. She denies headache. Related Data Home Medications ?Medication ?Instructions ?Recorded ?Confirmed buprenorphine 8 mg-naloxone 2 mg 2 tab sublingual DAILY 01/24/24 12/13/24 sublingual tablet Previous Rx's ?Medication ?Instructions ?Recorded norethindrone 1 mg-ethinyl 1 tab PO DAILY #84 tabs 01/24/24 estradiol 20 mcg (21)-iron 75 mg (7) tablet (Loestrin Fe 11/11 (28-Day)) gszyqxgocyfnjgn-izdxcoomgxufsff-RA 5 ml PO Q4H PRN sinus symptoms 12/13/24 2 mg-30 mg-10 mg/5 mL oral syrup #118 mL (Bromfed DM) Allergies Allergy/AdvReac Type Severity Reaction Status Date / Time No Known Allergies Allergy Verified 12/13/24 16:18 [facility] Disclaimer: The information contained in this section may have been updated after the patient was seen, as this information can be updated by other users. Medical History Bipolar 1 disorder Incomplete Miscarriage Surgical History History of delivery Hx of dilation and curettage Family History Other No significant family history Social History Smoking Status: Current every day smoker alcohol intake: never substance use type: heroin, amphetamines, opiates, methamphetamine and prescription drug current occupational status: employed Travel in the last 8 weeks: None Have you lived/traveled outside [place] in past 30 days?: No Contact w/someone who lives/traveled outside US past 30 days?: No Exposure to someone with infectious disease in past 14 days?: No Do you have a fever (greater than 100.4 F or 38 C)?: No Have you tested positive for COVID-19: No Exposed to someone with COVID-19 in past 14 days?: No Do you have a sore throat?: Yes Do you have a cough?: No Do you have any weakness?: No Do you have any diarrhea?: No Are you experiencing any unusual bleeding?: No Do you have any muscle aches/pain?: No Do you have any abdominal pain?: No Are you experiencing loss of taste or smell?: No Other Medical History Have you received the Flu Vaccine for this season: No Have you received the Pneumonia Vaccine: No ROS Obtained: Yes Systems reviewed as appropriate & no additional complaints except as documented Physical Exam General General appearance: alert and in no apparent distress Respiratory Respiratory exam: Present normal lung sounds bilaterally Cardiovascular Cardiovascular exam: Present regular rate Neurological Exam Neurological exam: Present alert and oriented X3 Medical Decision Making Medical Records Screening: Per USPSTF and CDC recommendations, given the prevalence of disease in our region, it is our hospital?s policy to screen for HIV and viral Hepatitis for all patients aged 18 and over and those with ongoing risk factors. Jimmy Inquiry Pt receiving controlled substance: No Vital Signs: 12/13/24 15:57 12/13/24 16:44 12/13/24 16:56 Temperature 97.7 F 98.1 F Temperature Source Temporal Artery Scan Oral Pulse Rate 75 83 Pulse Rate [Right] 62 Respiratory Rate 18 13 16 Blood Pressure 137/80 126/77 Blood Pressure [Right Arm] 123/76 Blood Pressure Mean [Right Arm] 91 Blood Pressure Source Automatic Cuff Blood Pressure Position Sitting 02 Sat by Pulse Oximetry 96 98 Oxygen Delivery Method Room Air Room Air Room Air Lab Data Lab results reviewed: Yes I reviewed the patient's lab results. Lab Results 12/13/24 16:00: SARS-CoV-2 (PCR) Not detected, Influenza A Untype (PCR) Detected A, Influenza Type B (PCR) Not detected Orders (Tests/Meds): ED MEDICATIONS Discontinued Medications Generic Name Dose Route Start Last Admin Trade Name Freq PRN Reason Stop Dose Admin Prednisone 60 mg 12/13/24 16:10 12/13/24 16:16 Prednisone 20mg Tab PO 12/13/24 16:11 60 mg ONCE ONE Administration ORDERS Category Date Time Status Rapid PCR Covid and Flu A/B Stat Lab 12/13/24 16:00 Completed Medical Decision Narrative: In summary patient is a 4-year-old female who presents to the emergency department for evaluation of respiratory tract symptoms. Patient is hemodynamically stable upon arrival, afebrile. Physical exam is remarkable for slight erythematous posterior pharynx without exudate normal breath sounds no increased work of breathing. Differential diagnosis includes upper or lower respiratory tract infection versus pharyngitis etc. Initial workup will be conducted with COVID flu swabs. Initial interventions include Tylenol and ibuprofen. Initial workup reviewed by me shows that patient is influenza A positive.. Upon repeat evaluation patient reported minor improvement in her constellation of symptoms after initial intervention. Given this patient is appropriate for discharge with recommendation continue Tylenol Motrin sympt omatic and supportive treatment and have sent a prescription for Bromfed into her pharmacy. Critical Care Critical Care Time Critical Care Time: No
[2024-12-13] MEDS: predniSONE 20MG TAB 60 MG PO (16:16)
[2024-12-13 16:39] LABS: Influenza A, PCR Detected (NotDetected)
[2024-12-13 16:44] VITALS: BP 137/80; PULSE 75; RESP 13; O2SAT 98
[2024-12-13 16:56] VITALS: BP 126/77; PULSE 83; RESP 16; TEMP 36.7; O2SAT 98
== END 2024-12-13 16:59 | disposition home or self-care (01) ==
PROVIDERS: Emergency Provider Student in an Organized Health Care Education/Training Program
DX: J10.1 Influenza due to other identified influenza virus with other respiratory manifestations (principal); R09.89 Other specified symptoms and signs involving the circulatory and respiratory systems; R05.9 Cough, unspecified; Z72.0 Tobacco use
CPT/HCPCS: 87636; 99283

== ENCOUNTER 2025-01-28 15:54 | Emergency (ER) | payer OTHER, SELFPAY ==
[2025-01-28 16:09] VITALS: BP 138/81; PULSE 117; RESP 18; O2SAT 100
[2025-01-28 16:12] VITALS: BP 138/81; PULSE 110; RESP 16; TEMP 36.7; O2SAT 100; BMI 24.0
[2025-01-28 16:12] LABS: Microscopic, Urine URINE MICROSCOPIC (MICROSCOPIC)
[2025-01-28 16:16] LABS: Bilirubin,Urine Negative (Negative); Blood, Urine Negative (Negative); Color,Urine YELLOW (Yellow); Glucose,Urine (UA) Negative (Negative); Ketones,Urine Negative (Negative); Leukocyte Esterase,Urine Negative (Negative); Nitrate,Urine Negative (Negative); Protein,Urine Negative (Negative); Specific Gravity, Urine 1.025 (1.005-1.030); Urobilinogen,Urine 0.2 EU/dl (0.2)
[2025-01-28 16:17] LABS: Appearance,Urine Slightly Cloudy (Clear)
--- NOTE | 2025-01-28 16:19 | PC.NURSE ---
patient refused to have and IV started at this time and also stated she did not want to have a CT scan at this time.
[2025-01-28 16:30] LABS: RBC,Urine Occasional #/hpf (0-3)
[2025-01-28 16:31] LABS: Amorphous Sediment,Urine 2+ /lpf; Bacteria,Urine 2+ /lpf; Mucus,Urine 1+ /lpf
--- NOTE | 2025-01-28 16:32 | ED_ITS ---
<Statement entered by Devin Graf MD - 01/28/25 23:40> I was consulted by the MATEO, and we discussed the complexity of the problems being addressed. I approved the treatment and management plan for this patient's care in the emergency department, thus performing a substantive portion of the medical decision making. Devin Graf MD Discharge Plan Disposition Patient Disposition: Home, Self-Care Prescriptions Prescriptions: No Action buprenorphine-naloxone 8-2 mg tablet, sublingual 2 tab sublingual DAILY Patient Comments: PLACE 2 TABLETS UNDER THE TONGUE ONCE DAILY DIRECTED norethindrone-e.estradiol-iron [Loestrin Fe 11/11 (28-Day)] 1 mg-20 mcg (21)/75 mg (7) tablet 1 tab PO DAILY Qty: 84 4RF afeyebdszoslsah-shrpisnnr-HZ [Bromfed DM] 2-30-10 mg/5 mL syrup 5 ml PO Q4H PRN (Reason: sinus symptoms) Qty: 118 0RF Referrals Follow up/Referrals: Hesham Tellez DO [Staff Physician] - See instructions Provider,ReferralMD [Primary Care Provider] - See instructions Activity Restrictions/Add. Instructions Additional Instructions/Restrictions: Today you were evaluated in the emergency department for abdominal pain with labs only. As we discussed, this gives us a limited evaluation of your abdominal pain. Your lab work is normal. I would recommend that you call the PCP listed above and make a follow-up appointment for possible ultrasound imaging of your gallbladder. Please return to the ED for worsening of condition. Clinical Impressions Clinical Impression: Abdominal pain, RUQ Instructions Patient Instructions: DI for Acute Abdominal Pain Print Language Print Language: Yoruba Discharge ED Provider: Devin Graf General Adult HPI <Tiffanie Ceron APRN - Last Filed: 01/28/25 18:06> General Chief complaint: Abdominal Pain Stated complaint: Stomach pain Time Seen by Provider: 01/28/25 16:04 Mode of Arrival: Ambulatory Source of Information: Patient Description of Symptoms (Recalled from ER Triage Doc. by RN): patient to ED for right upper quadrant pain that started yesterday. patient states it has been coming and going for a while. denies N/V/D. no difficulty urinating. History of Present Illness HPI narrative: patient is a 24-year-old female PMHx Subutex maintenance antepartum who presents to the ED for complaints of 1 to 2 months of right upper quadrant intermittent abdominal cramping. Patient states that she has not taken anything for the pain prior to arrival. Related Data Home Medications ?Medication ?Instructions ?Recorded ?Confirmed buprenorphine 8 mg-naloxone 2 mg 2 tab sublingual DAILY 01/24/24 12/13/24 sublingual tablet Previous Rx's ?Medication ?Instructions ?Recorded norethindrone 1 mg-ethinyl 1 tab PO DAILY #84 tabs 01/24/24 estradiol 20 mcg (21)-iron 75 mg (7) tablet (Loestrin Fe 11/11 (28-Day)) sisumdgylqdmlys-sslgitvovhiasyg-VF 5 ml PO Q4H PRN sinus symptoms 12/13/24 2 mg-30 mg-10 mg/5 mL oral syrup #118 mL (Bromfed DM) Allergies Allergy/AdvReac Type Severity Reaction Status Date / Time No Known Allergies Allergy Verified 12/13/24 16:18 [facility] <Tiffanie Ceron APRN - Last Filed: 01/28/25 18:06> [facility] Disclaimer: The information contained in this section may have been updated after the patient was seen, as this information can be updated by other users. Medical History Bipolar 1 disorder Incomplete Miscarriage Surgical History History of delivery Hx of dilation and curettage Family History Other No significant family history Social History Smoking Status: Current every day smoker alcohol intake: never substance use type: heroin, amphetamines, opiates, methamphetamine and prescription drug current occupational status: employed Travel in the last 8 weeks: None Have you lived/traveled outside [place] in past 30 days?: No Contact w/someone who lives/traveled outside [place] past 30 days?: No Exposure to someone with infectious disease in past 14 days?: No Do you have a fever (greater than 100.4 F or 38 C)?: No Have you tested positive for COVID-19: No Exposed to someone with COVID-19 in past 14 days?: No Do you have a sore throat?: No Do you have a cough?: No Do you have any weakness?: No Do you have any diarrhea?: No Are you experiencing any unusual bleeding?: No Do you have any muscle aches/pain?: No Do you have any abdominal pain?: No Are you experiencing loss of taste or smell?: No Other Medical History Have you received the Flu Vaccine for this season: No Have you received the Pneumonia Vaccine: No <Tiffanie Ceron APRN - Last Filed: 01/28/25 18:06> ROS Obtained: Yes Systems reviewed as appropriate & no additional complaints except as documented Physical Exam <Tiffanie Ceron APRN - Last Filed: 01/28/25 18:06> General General appearance: alert and in no apparent distress Head Head exam: atraumatic and normocephalic Eye Eye exam: Present normal appearance and PERRL ENT ENT exam: Present normal exam Neck Neck exam: Present normal inspection Chest Chest inspection: Present normal inspection and symmetric chest wall rise; Absent tenderness Respiratory Respiratory exam: Present normal lung sounds bilaterally Cardiovascular Cardiovascular exam: Present regular rate Abdominal Exam Abdominal exam: Present soft and normal bowel sounds; Absent tenderness Extremities Exam Extremities exam: Present normal inspection and full ROM Back Exam Back exam: Present normal inspection and full ROM Neurological Exam Neurological exam: Present alert and oriented X3 Psychiatric Psychiatric exam: Present normal affect and normal mood Skin Skin exam: Present warm and dry Medical Decision Making <Tiffanie Ceron APRN - Last Filed: 01/28/25 18:06> Medical Records Screening: Per USPSTF and CDC recommendations, given the prevalence of disease in our region, it is our hospital?s policy to screen for HIV and viral Hepatitis for all patients aged 18 and over and those with ongoing risk factors. Jimmy Inquiry Pt receiving controlled substance: No Vital Signs: 01/28/25 16:09 01/28/25 16:12 01/28/25 18:04 Temperature 98.1 F 98.4 F Temperature Source Oral Pulse Rate 117 H 77 Pulse Rate [Right] 110 H Respiratory Rate 18 16 18 Blood Pressure 138/81 138/81 Blood Pressure [Left Radial Artery] 138/81 Blood Pressure Mean [Left Radial Artery] 100 Blood Pressure Source [Left Radial Artery] Automatic Cuff Blood Pressure Position [Left Radial Artery] Sitting 02 Sat by Pulse Oximetry 100 100 Oxygen Delivery Method Room Air Room Air Room Air Lab Data Lab Results 01/28/25 16:06: Urine Color Yellow, Urine Appearance Slightly cloudy, Urine pH 7.0, Ur Specific [place] 1.025, Urine Protein Negative, Urine Glucose (UA) Negative, Urine Ketones Negative, Urine Blood Negative, Urine Nitrate Negative, Urine Bilirubin Negative, Urine Urobilinogen 0.2, Ur Leukocyte Esterase Negative, Urine RBC Occasional, Urine WBC 3-5, Ur Squamous Epith Cells 5-10, Amorphous Sediment 2+, Urine Bacteria 2+, Urine Mucus 1+, Urine HCG, Qual Negative 01/28/25 16:28: WBC 7.8, RBC 5.04, Hgb 12.0 L, Hct 38.1, MCV 75.6 L, MCH 23.8 L, MCHC 31.5 L, RDW 14.8, Plt Count 346, MPV 9.7, Neut % (Auto) 40.4, Lymph % (Auto) 46.3, [place] % (Auto) 7.0, Eos % (Auto) 5.2, Baso % (Auto) 0.8, Neut # (Auto) 3.2, Lymph # (Auto) 3.6, [place] # (Auto) 0.6, Eos # (Auto) 0.4, Baso # (Auto) 0.1, Sodium 141, Potassium 3.8, Chloride 104, Carbon Dioxide 26, Anion Gap 14.8, BUN 15, Creatinine 0.50 L, Estimated Creat Clear 175, Estimated GFR 153, Est GFR ( Amer) 185, Glucose 98, Calcium 9.6, Total Bilirubin 0.2, AST 34, ALT 18, Alkaline Phosphatase 89, Total Protein 8.0, Albumin 4.8, Globulin 3.2, Albumin/Globulin Ratio 1.5, Lipase 69 01/28/25 16:28 01/28/25 16:28 Orders (Tests/Meds): ORDERS Category Date Time Status CBC w/Auto Diff [Complete Blood Count Auto Diff] Stat Lab 01/28/25 16:28 Completed CMP [Comprehensive Metabolic Panel] Stat Lab 01/28/25 16:28 Completed Lactic Acid Stat Lab 01/28/25 16:33 Ordered Lipase Stat Lab 01/28/25 16:28 Completed UA [Urinalysis and Microscopic] Stat Lab 01/28/25 16:06 Completed Urine , HCG Qual. Stat Lab 01/28/25 16:06 Completed Urine Culture Stat Micro 01/28/25 16:06 Received Medical Decision Narrative: In summary, patient is a 24-year-old female PMHx Subutex maintenance antepartum who presents to the ED for complaints of 1 to 2 months of right upper quadrant intermittent abdominal cramping. Patient states that she has not taken anything for the pain prior to arrival. She adds that nothing makes the pain worse or better. She denies any additional complaints, has not been evaluated for this before. Surgical history of . Denies fever, chills, body aches, chest pain, shortness of breath, nausea, vomiting, dysuria, diarrhea. Patient states that she does not want IV access, does not want any medications for symptomatic relief, does not want any imaging performed at today's visit. I had an interactive discussion with the patient that labs will only provide us with limited information, she verbalized understanding and continued to decline any type of imaging or medication. Upon initial evaluation patient is alert, oriented and hemodynamically stable. Her physical exam is unremarkable. Abdomen is soft and nontender. CBC unremarkable for any leukocytosis, stable H&H. CMP unremarkable for any actionable abnormality. Lipase 69. Urinalysis unremarkable. negative. I discussed with patient that her labs are overall unremarkable. I offered to get an imaging or medication patient declines. I discussed with patient that she will need to follow-up with the PCP. I provided her with a PCP to call, discussed that they may want to order an outpatient ultrasound for further evaluation. Patient remained hemodynamically stable and ambulatory from the ED. She verbalized understanding of discharge instructions. <Devin Graf MD - Last Filed: 01/28/25 17:54> Vital Signs: 01/28/25 16:09 01/28/25 16:12 01/28/25 18:04 Temperature 98.1 F 98.4 F Temperature Source Oral Pulse Rate 117 H 77 Pulse Rate [Right] 110 H Respiratory Rate 18 16 18 Blood Pressure 138/81 138/81 Blood Pressure [Left Radial Artery] 138/81 Blood Pressure Mean [Left Radial Artery] 100 Blood Pressure Source [Left Radial Artery] Automatic Cuff Blood Pressure Position [Left Radial Artery] Sitting 02 Sat by Pulse Oximetry 100 100 Oxygen Delivery Method Room Air Room Air Room Air Lab Data Lab Results 01/28/25 16:06: Urine Color Yellow, Urine Appearance Slightly cloudy, Urine pH 7.0, Ur Specific [place] 1.025, Urine Protein Negative, Urine Glucose (UA) Negative, Urine Ketones Negative, Urine Blood Negative, Urine Nitrate Negative, Urine Bilirubin Negative, Urine Urobilinogen 0.2, Ur Leukocyte Esterase Negative, Urine RBC Occasional, Urine WBC 3-5, Ur Squamous Epith Cells 5-10, Amorphous Sediment 2+, Urine Bacteria 2+, Urine Mucus 1+, Urine HCG, Qual Negative 01/28/25 16:28: WBC 7.8, RBC 5.04, Hgb 12.0 L, Hct 38.1, MCV 75.6 L, MCH 23.8 L, MCHC 31.5 L, RDW 14.8, Plt Count 346, MPV 9.7, Neut % (Auto) 40.4, Lymph % (Auto) 46.3, [place] % (Auto) 7.0, Eos % (Auto) 5.2, Baso % (Auto) 0.8, Neut # (Auto) 3.2, Lymph # (Auto) 3.6, [place] # (Auto) 0.6, Eos # (Auto) 0.4, Baso # (Auto) 0.1, Sodium 141, Potassium 3.8, Chloride 104, Carbon Dioxide 26, Anion Gap 14.8, BUN 15, Creatinine 0.50 L, Estimated Creat Clear 175, Estimated GFR 153, Est GFR ( Amer) 185, Glucose 98, Calcium 9.6, Total Bilirubin 0.2, AST 34, ALT 18, Alkaline Phosphatase 89, Total Protein 8.0, Albumin 4.8, Globulin 3.2, Albumin/Globulin Ratio 1.5, Lipase 69 Orders (Tests/Meds): ORDERS Category Date Time Status CBC w/Auto Diff [Complete Blood Count Auto Diff] Stat Lab 01/28/25 16:28 Completed CMP [Comprehensive Metabolic Panel] Stat Lab 01/28/25 16:28 Completed Lactic Acid Stat Lab 01/28/25 16:33 Ordered Lipase Stat Lab 01/28/25 16:28 Completed UA [Urinalysis and Microscopic] Stat Lab 01/28/25 16:06 Completed Urine , HCG Qual. Stat Lab 01/28/25 16:06 Completed Urine Culture Stat Micro 01/28/25 16:06 Received ECG Data Tracing #1: Independently interpreted by me rate is 59, rhythm is regular, axis is normal, no ST elevation in anatomical contiguous leads, QTc 419. Critical Care <Tiffanie Ceron APRN - Last Filed: 01/28/25 18:06> Critical Care Time Critical Care Time: No
[2025-01-28 16:42] LABS: Albumin Level 4.8 g/dl (3.5-5.0); Chloride 104 mmol/L (98-107); Potassium 3.8 mmoL/L (3.5-5.1); Sodium 141 mmol/L (136-145)
[2025-01-28 16:45] LABS: Alanine Aminotransferase 18 U/L (12-78); Albumin/Globulin Ratio 1.5 (1.1-1.8); Alkaline Phosphatase 89 U/L (38-126); Anion Gap 14.8 mEq/L (5-15); Aspartate Amino Transferase 34 U/L (14-36); Bilirubin,Total 0.2 mg/dl (0.2-1.3); Blood Urea Nitrogen 15 mg/dl (7-17); Calcium 9.6 mg/dl (8.4-10.2); Carbon Dioxide 26 mmol/L (22.0-30.0); Creatinine Clearance Estimated 175 mL/min (50-200); Estimated Glomerular Filt Rate 153 ml/min (>60); GFR (African American) 185 ML/MIN (>60); Globulin 3.2 g/dL (1.3-3.2); Glucose 98 mg/dl (74-100); Lipase 69 U/L (23-300)
[2025-01-28 16:49] LABS: Basophils # 0.1 K/mm3 (0-0.2); Basophils % 0.8 % (0.1-2.0); Eosinophils # 0.4 K/mm3 (0.0-0.4); Eosinophils % 5.2 % (0.1-12.0); Hematocrit 38.1 % (37.0-47.0); Lymphocytes # 3.6 K/mm3 (0.7-4.5); Lymphocytes % 46.3 % (10-50); Mean Corpuscular HGB Conc 31.5 g/dL (31.8-35.4); Mean Corpuscular Hemoglobin 23.8 pg (27.0-31.2); Mean Corpuscular Volume 75.6 fl (81-99); Mean Platelet Volume 9.7 fl (7.4-10.4); Monocytes # 0.6 K/mm3 (0.1-1.0); Neutrophils # 3.2 K/mm3 (1.8-7.8); Neutrophils % 40.4 % (37.0-80.0); Platelet Count 346 K/mm3 (142-424); Red Blood Count 5.04 M/mm3 (4.20-5.40); Red Cell Distribution Width 14.8 % (11.5-17.5); White Blood Count 7.8 K/mm3 (4.8-10.8)
[2025-01-28 17:10] LABS: Urine Pregnancy, HCG Qual. Negative (Negative)
[2025-01-28 18:04] VITALS: BP 138/81; PULSE 77; RESP 18; TEMP 36.9; O2SAT 99
== END 2025-01-28 18:05 | disposition home or self-care (01) ==
PROVIDERS: Nurse Practitioner; Emergency Provider Emergency Medicine
DX: R10.11 Right upper quadrant pain (principal); F17.210 Nicotine dependence, cigarettes, uncomplicated
CPT/HCPCS: 80053; 81001; 81025; 83690; 85025; 87086; 99283

== ENCOUNTER 2025-01-30 09:23 | Outpatient (CLI) | payer OTHER, SELFPAY ==
--- NOTE | 2025-01-30 09:30 | US_ITS ---
FINAL REPORT CLINICAL HISTORY: Right sided abd pain FINDINGS: ULTRASOUND ABDOMEN The liver is unremarkable. Spleen has a normal sonographic appearance. The gallbladder appears partially contracted without wall thickening or stone disease. No biliary ductal dilatation is identified. Kidneys show no evidence of mass or obstruction. Pancreas is not well visualized. IVC and aorta are grossly unremarkable. There is no obvious fluid collection. IMPRESSION: Unremarkable abdominal ultrasound. Reviewed, Interpreted and Dictated by Juan Antonio Dawn MD Transcribed by Alexandra Scott Authenticated and [facility]
== END 2025-01-30 23:59 | disposition home or self-care (01) ==
LOC: RAD 09:24
PROVIDERS: PCP Family Medicine; Visit Provider Nurse Practitioner Family
DX: R10.9 Unspecified abdominal pain (principal)
CPT/HCPCS: 76700